=== PATIENT | male | born 1985 | race Caucasian/White ===

== ENCOUNTER 2018-04-29 15:48 | Emergency (ER) | payer SELFPAY ==
[~2018-04-29 15:48] MED LIST changes: -MAGN250T34 PO; -VITA-175 PO
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
[2018-04-29] MEDS ORDERED: NS(*) 0.9% 1000 ML BAG 1,000 ML IV ONE (16:12)
[2018-04-29] MEDS ORDERED: ONDANSETRON 4 MG/2 ML VIAL IVP ONE (16:15)
[2018-04-29 16:29] LABS: PLATELET COUNT, AUTOMATED 79 K/uL (150-450)
--- NOTE | 2018-04-29 17:12 | RADIOLOGY IMAGING REPORT ---
[place] [facility] [place] NAME: Jay Francis : 1985 MR: [id number] V: [id number] EXAM DATE: ORDERING PHYSICIAN: RAMBO SAENZ TECHNOLOGIST: Location: [facility] - [place] Patient: Jay Francis : 1985 Visit/Account:[id number] Date of Sevice: 04/29/2018 EXAMINATION: Head CT without intravenous contrast History: Trauma TECHNIQUE: Contiguous axial images were obtained from the skull base to the vertex without intraven ous contrast. One of the following dose optimization techniques was utilized in the performance of th is exam: Automated exposure control; adjustment of the mA and/or kV according to the patient's size; or use of an iterative reconstruction technique. Specific details can be referenced in the facility 's radiology CT exam operational policy. COMPARISON STUDIES: 05/06/2017 FINDINGS: Visualized mastoid air cells / paranasal sinuses: Mild mucosal thickening right maxillary sinus. Calvarium and scalp: Old fractures left maxillary sinus and zygomatic arch. No evidence of acute frac ture. Old fracture medial wall left orbit. White matter: negative Dural venous sinuses / arterial structures: negative Ventricles / sulci / fissures: negative Masses / hemorrhage / midline shift: negative Extra-axial spaces: negative IMPRESSION: No evidence of acute fracture or acute intracranial pathology. Report Dictated By: Dillon Menendez MD at 04/29/2018 5:03 PM Report E-Signed By: Dillon Menendez MD at 04/29/2018 5:06 PM WSN:[id number]
--- NOTE | 2018-04-29 17:17 | RADIOLOGY IMAGING REPORT ---
FACILITY: [facility] - [place] PATIENT NAME: Jay Francis : 1985 MR: [id number] V: [id number] EXAM DATE: ORDERING PHYSICIAN: RAMBO SAENZ TECHNOLOGIST: Location: [facility] Patient: Jay Francis : 1985 Visit/Account:[id number] Date of Sevice: 04/29/2018 EXAMINATION: Cervical spine CT History: Trauma COMPARISON STUDIES: 05/06/2017 TECHNIQUE: Axial images were obtained through the cervical spine without IV contrast administration. Coronal and sagittal reformatted images were obtained from the axial source data. One of the followi ng dose optimization techniques was utilized in the performance of this exam: Automated exposure cont rol; adjustment of the mA and/or kV according to the patient's size; or use of an iterative reconstr uction technique. Specific details can be referenced in the facility's radiology CT exam operational policy. FINDINGS: No evidence of acute fracture. Old fracture nondisplaced fracture deformity of the left occipital con dyle. Old fracture deformities spinous process fractures upper thoracic spine. Soft tissues are negat james. Vertebral bodies have normal height. No subluxation. Lung apices clear. IMPRESSION: Old fracture deformities of the left occipital condyle and spinous processes in the upper thoracic spine. No evidence of acute fracture or vertebral malalignment. Report Dictated By: Dillon Menendez MD at 04/29/2018 5:07 PM Report E-Signed By: Dillon Menendez MD at 04/29/2018 5:13 PM WSN:[id number]
[2018-04-29 17:30] VITALS: BP 132/96
--- NOTE | 2018-04-29 17:44 | RADIOLOGY IMAGING REPORT ---
FACILITY: [facility] PATIENT NAME: Jay Francis : 1985 MR: [id number] V: [id number] EXAM DATE: ORDERING PHYSICIAN: RAMBO SAENZ TECHNOLOGIST: Location: [facility] Patient: Jay Francis : 1985 Visit/Account:[id number] Date of Sevice: 04/29/2018 CHEST PA AND LAT INDICATION: fall, lightheadedness. COMPARISON: None available FINDINGS: Heart size within normal limits. There is no focal infiltrate or lobar consolidation. There is no pneumothorax or pleural effusion. IMPRESSION: 1. No acute cardiopulmonary process. Report Dictated By: Alcon Carrera at 04/29/2018 5:38 PM Report E-Signed By: Alcon Carrera at 04/29/2018 5:38 PM WSN:[id number]
--- NOTE | 2018-04-29 18:04 | EKG ---
FACILITY: [facility] PATIENT NAME: GIGI ZHOU : [id number] MR: [id number] V: [id number] EXAM DATE: ORDERING PHYSICIAN: RAMBO SAENZ TECHNOLOGIST: AMPARO Test Reason : DIZZY Blood Pressure : / mmHG Vent. Rate : 105 BPM Atrial Rate : 105 BPM P-R Int : 140 ms QRS Dur : 086 ms QT Int : 356 ms P-R-T Axes : 050 -04 -01 degrees QTc Int : 470 ms Sinus tachycardia Minimal voltage criteria for LVH, may be normal variant Borderline ECG When compared with ECG of 26-APR-2017 13:41, No significant change was found Confirmed by RAYMUNDO QUARLES ([id number]) on 05/01/2018 2:47:42 PM Referred By: NAHOMI Confirmed By:RAYMUNDO QUARLES
== END 2018-04-29 18:05 | disposition home or self-care (01) ==
LOC: ER 16:06
DX: S06.0X9A Concussion with loss of consciousness of unspecified duration, initial encounter (principal); F10.20 Alcohol dependence, uncomplicated; W19.XXXA Unspecified fall, initial encounter
CPT/HCPCS: 70450; 71046; 72125; 80320; 81001; 84484; 85025; 93005; 96361; 96374; 99285; J2405; J7030; 82040; 82247; 82310; 82374; 82435; 82565; 82947; 84075; 84132; 84155; 84295; 84450; 84460; 84520

== ENCOUNTER → 2018-04-29 | Outpatient (CLI) | payer SELFPAY ==
[~2018-04-29] MED LIST: MAGN250T34 PO; NIC10R INH; VITA-175 PO
[2018-04-30 13:06] VITALS: BMI 33.5
== END ==
LOC: AMB 15:32
PROVIDERS: ATTEND Nurse Practitioner
DX: R51 Headache (principal); S00.81XA Abrasion of other part of head, initial encounter; S00.511A Abrasion of lip, initial encounter; R41.3 Other amnesia; W19.XXXA Unspecified fall, initial encounter
CPT/HCPCS: A0425; A0427

== ENCOUNTER 2018-04-30 01:06 | Emergency (ER) | payer SELFPAY ==
--- NOTE | 2018-04-30 01:17 | ER Report ---
History and Physical Time Seen By MD: 01:16 Hx. of Stated Complaint: "WANTS TO DETOX" HPI/ROS CHIEF COMPLAINT: wants to detox from alcohol HISTORY OF PRESENT ILLNESS: This is a 32 year old male. He was here earlier in the day shift with a fall and evaluation with CT scan of the head and c-spine which were negative. He came back tonight because he feels like he needs to quit drinking. He has gone through detox in the past here in the hospital, but continued drinking. He has done other detox as well. He has a history of hallucinations when he quits drinking, but no history of seizures. He says that his radiator was talking to him earlier tonight, although he knows that that cannot be true. He drinks about 1/2 gallon of Vodka daily. He has not had anything else to eat or drink in about a week now. His last drink was about 3 hours prior to coming to the hospital. He has some abrasions from his fall earlier, but otherwise has no complaints other than the alcohol. He does not feel very shaky right now. He did express some vague suicidal thoughts, no specific plan. Allergies: Coded Allergies: No Known Drug Allergies (Unverified , 04/30/18) Home Meds Discontinued Reported Medications Nicotine (NICOTROL) 10 Mg/Inh Ctr, 10 MG INH PRN Y for NICOTINE REPLACEMENT 04/30/17 Reviewed Nurses Notes: Yes Hx Smoking: Yes Smoking Status: Current: Every Day Smoker, Heavy Tobacco Smoker Exposure to Second Hand Smoke?: Yes Hx Substance Use Disorder: No Hx Alcohol Use: Yes (1 PINT/DAY) Constitutional Vital Sign - Last 24 Hours 04/30/18 04/30/18 01:11 04:02 Temp 99.7 Pulse 118 133 Resp 18 20 B/P (MAP) 151/112 133/107 (116) Pulse Ox 93 91 O2 Delivery Room Air Room Air Physical Exam General Appearance: The patient is alert. No acute distress. Eyes: Pupils are equal, round. Reactive to light. No pallor or icterus, but has some scleral injection. Extraocular movements are intact. ENT: Mucous membranes are dry. Otherwise normal oral mucosa. Posterior oropharynx is normal. Normal tympanic membranes and canals. Neck: Supple and non tender. No lymphadenopathy. Respiratory: Lungs are clear to auscultation. Cardiovascular: Regular rate and rhythm. No murmurs, gallops or rubs. Normal capillary refill. Gastrointestinal: Abdomen is soft and non tender. Nondistended. Normal active bowel sounds. Neurological: Alert and oriented x3. Cranial nerves II through XII show no acute deficits on my exam. He has some mild unsteadiness on his feet, but otherwise has no focal weakness or numbness at this time. Skin: Warm and dry. He does have some abrasions on his face from his fall. Musculoskeletal: Mild discomfort in his neck from the fall earlier today, reviewed the CT scans which were negative. No other musculoskeletal pain at this time. DIFFERENTIAL DIAGNOSIS: After history and physical exam, differential diagnosis was considered for patient requesting detox, currently with mild symptoms of withdrawal, having hallucinations earlier today which were auditory, and history of prior hallucinations when he stops drinking. He will be voluntary for admission to [facility] for detox. Medical Decision Making Data Points Result Diagram: 04/30/18 0135 04/30/18 0135 Laboratory Hematology Test 04/30/18 01:23 04/30/18 01:35 Urine Color Kasia Urine Clarity Slightly-cloudy Urine pH 6.0 pH (4.8-9.5) Urine Specific [place] 1.023 Urine Protein 100 mg/dL (NEGATIVE) Urine Glucose (UA) 50 mg/dL (NEGATIVE) Urine Ketones Trace mg/dL (NEGATIVE) Urine Blood Large (NEGATIVE) Urine Nitrite Negative (NEGATIVE) Urine Bilirubin Moderate (NEGATIVE) Urine Urobilinogen 4.0 mg/dL (0.2-1.9) Urine Leukocyte Esterase Negative (NEGATIVE) Urine RBC 82 /HPF (0-2/HPF) Urine WBC 14 /HPF (0-5/HPF) Urine Squamous Epithelial Cells None /LPF (</=FEW) Urine Bacteria Negative /HPF (NONE-FEW) Urine Hyaline Casts Moderate /LPF (NONE-FEW) Urine Mucus Moderate /HPF (NONE-FEW) Urine Opiates Screen Negative Urine Barbiturates Screen Negative Ur Tricyclic Antidepressants Screen Negative Urine Phencyclidine Screen Negative Urine Amphetamines Screen Negative Urine Benzodiazepines Screen Negative Urine Cocaine Screen Negative Urine Cannabinoids Screen Negative Red Blood Count 5.28 M/uL (4.00-5.60) Mean Corpuscular Volume 95.0 fL (80.0-96.0) Mean Corpuscular Hemoglobin 32.9 pg (26.0-33.0) Mean Corpuscular Hemoglobin Concent 34.6 g/dL (32.0-36.0) Red Cell Distribution Width 13.6 % (11.5-14.5) Mean Platelet Volume 11.1 fL (7.2-11.1) Neutrophils (%) (Auto) 70.6 % (39.4-72.5) Lymphocytes (%) (Auto) 19.4 % (17.6-49.6) Monocytes (%) (Auto) 8.8 % (4.1-12.4) Eosinophils (%) (Auto) 0.3 % (0.4-6.7) Basophils (%) (Auto) 0.9 % (0.3-1.4) Nucleated RBC Relative Count (auto) 0.2 /100WBC Neutrophils # (Auto) 4.8 K/uL (2.0-7.4) Lymphocytes # (Auto) 1.3 K/uL (1.3-3.6) Monocytes # (Auto) 0.6 K/uL (0.3-1.0) Eosinophils # (Auto) 0.0 K/uL (0.0-0.5) Basophils # (Auto) 0.1 K/uL (0.0-0.1) Nucleated RBC Absolute Count (auto) 0.01 K/uL Sodium Level 142 mmol/L (137-145) Potassium Level 3.2 mmol/L (3.5-5.0) Chloride Level 99 mmol/L (98-107) Carbon Dioxide Level 26 mmol/L (22-30) Blood Urea Nitrogen 4 mg/dl (9-21) Creatinine 0.60 mg/dl (0.66-1.25) Glomerular Filtration Rate Calc > 60.0 Random Glucose 109 mg/dl (75-110) Calcium Level 8.6 mg/dl (8.4-10.2) Magnesium Level 1.9 mg/dl (1.7-2.2) Total Bilirubin 3.8 mg/dl (0.2-1.3) Aspartate Amino Transf (AST/SGOT) 1218 U/L (0-35) Alanine Aminotransferase (ALT/SGPT) 170 U/L (0-56) Alkaline Phosphatase 234 U/L (0-126) Total Protein 9.2 g/dl (6.3-8.2) Albumin 4.0 g/dl (3.5-5.0) Salicylates Level < 10 mg/L Salicylate Last Dose Date unk Acetaminophen Level < 10 ug/ml Serum Alcohol 358 mg/dl Chemistry Test 04/30/18 01:23 04/30/18 01:35 Urine Color Kasia Urine Clarity Slightly-cloudy Urine pH 6.0 pH (4.8-9.5) Urine Specific [place] 1.023 Urine Protein 100 mg/dL (NEGATIVE) Urine Glucose (UA) 50 mg/dL (NEGATIVE) Urine Ketones Trace mg/dL (NEGATIVE) Urine Blood Large (NEGATIVE) Urine Nitrite Negative (NEGATIVE) Urine Bilirubin Moderate (NEGATIVE) Urine Urobilinogen 4.0 mg/dL (0.2-1.9) Urine Leukocyte Esterase Negative (NEGATIVE) Urine RBC 82 /HPF (0-2/HPF) Urine WBC 14 /HPF (0-5/HPF) Urine Squamous Epithelial Cells None /LPF (</=FEW) Urine Bacteria Negative /HPF (NONE-FEW) Urine Hyaline Casts Moderate /LPF (NONE-FEW) Urine Mucus Moderate /HPF (NONE-FEW) Urine Opiates Screen Negative Urine Barbiturates Screen Negative Ur Tricyclic Antidepressants Screen Negative Urine Phencyclidine Screen Negative Urine Amphetamines Screen Negative Urine Benzodiazepines Screen Negative Urine Cocaine Screen Negative Urine Cannabinoids Screen Negative White Blood Count 6.8 k/uL (4.5-11.0) Red Blood Count 5.28 M/uL (4.00-5.60) Hemoglobin 17.4 g/dL (14.0-18.0) Hematocrit 50.2 % (42.0-52.0) Mean Corpuscular Volume 95.0 fL (80.0-96.0) Mean Corpuscular Hemoglobin 32.9 pg (26.0-33.0) Mean Corpuscular Hemoglobin Concent 34.6 g/dL (32.0-36.0) Red Cell Distribution Width 13.6 % (11.5-14.5) Platelet Count 75 K/uL (150-450) Mean Platelet Volume 11.1 fL (7.2-11.1) Neutrophils (%) (Auto) 70.6 % (39.4-72.5) Lymphocytes (%) (Auto) 19.4 % (17.6-49.6) Monocytes (%) (Auto) 8.8 % (4.1-12.4) Eosinophils (%) (Auto) 0.3 % (0.4-6.7) Basophils (%) (Auto) 0.9 % (0.3-1.4) Nucleated RBC Relative Count (auto) 0.2 /100WBC Neutrophils # (Auto) 4.8 K/uL (2.0-7.4) Lymphocytes # (Auto) 1.3 K/uL (1.3-3.6) Monocytes # (Auto) 0.6 K/uL (0.3-1.0) Eosinophils # (Auto) 0.0 K/uL (0.0-0.5) Basophils # (Auto) 0.1 K/uL (0.0-0.1) Nucleated RBC Absolute Count (auto) 0.01 K/uL Glomerular Filtration Rate Calc > 60.0 Calcium Level 8.6 mg/dl (8.4-10.2) Magnesium Level 1.9 mg/dl (1.7-2.2) Total Bilirubin 3.8 mg/dl (0.2-1.3) Aspartate Amino Transf (AST/SGOT) 1218 U/L (0-35) Alanine Aminotransferase (ALT/SGPT) 170 U/L (0-56) Alkaline Phosphatase 234 U/L (0-126) Total Protein 9.2 g/dl (6.3-8.2) Albumin 4.0 g/dl (3.5-5.0) Salicylates Level < 10 mg/L Salicylate Last Dose Date unk Acetaminophen Level < 10 ug/ml Serum Alcohol 358 mg/dl Toxicology Test 04/30/18 01:23 04/30/18 01:35 Urine Opiates Screen Negative Urine Barbiturates Screen Negative Ur Tricyclic Antidepressants Screen Negative Urine Phencyclidine Screen Negative Urine Amphetamines Screen Negative Urine Benzodiazepines Screen Negative Urine Cocaine Screen Negative Urine Cannabinoids Screen Negative Salicylates Level < 10 mg/L Salicylate Last Dose Date unk Acetaminophen Level < 10 ug/ml Serum Alcohol 358 mg/dl Urinalysis Test 04/30/18 01:23 Urine Color Kasia Urine Clarity Slightly-cloudy Urine pH 6.0 pH (4.8-9.5) Urine Specific [place] 1.023 Urine Protein 100 mg/dL (NEGATIVE) Urine Glucose (UA) 50 mg/dL (NEGATIVE) Urine Ketones Trace mg/dL (NEGATIVE) Urine Blood Large (NEGATIVE) Urine Nitrite Negative (NEGATIVE) Urine Bilirubin Moderate (NEGATIVE) Urine Urobilinogen 4.0 mg/dL (0.2-1.9) Urine Leukocyte Esterase Negative (NEGATIVE) Urine RBC 82 /HPF (0-2/HPF) Urine WBC 14 /HPF (0-5/HPF) Urine Squamous Epithelial Cells None /LPF (</=FEW) Urine Bacteria Negative /HPF (NONE-FEW) Urine Hyaline Casts Moderate /LPF (NONE-FEW) Urine Mucus Moderate /HPF (NONE-FEW) ED Course/Re-evaluation Clinical Indication for ER IV: Hydration, IV Access ED Course After initial evaluation, patient had blood work and urine sent to the lab. Shortly after this he started becoming very shaky. See was score showed a score of 45. I ordered 20 mg of Valium oral dose and Zofran 4 mg oral dose. Shortly after taking this medication he ended up throwing up., Still very shaky, we ordered an IV with a banana bag, 2 mg of IV Ativan, 4 mg of IV Zofran. This seemed to help him significantly. Labs have come back and show a normal white count but a low platelet count. His liver function tests are very elevated, he has mild decrease in his potassium. Otherwise electrolytes and kidney function are fairly unremarkable. His urinalysis was very abnormal with a lot of changes including ketones, glucose, blood, and on microscopic showed red cells and white cells with other debris but negative bacteria. His alcohol level was 358. Past alcohol levels have been around 400. At this visit earlier during the day shift his alcohol level was 360s. I ordered a urine culture as well as a dose of 1g Rocephin IV. He felt better after the initial ativan and we did give him some Sprite and crackers and he was able to keep these down. A little later started to become very shaky again and was given a second dose of Ativan 2mg IV. The Ativan has helped with the withdrawal symptoms, and he remains alert and oriented, no confusion. I called and discussed the patient presentation and the lab work with Dr. Bowers. Based on his rapid change with severe withdrawal symptoms, and his laboratory abnormalities, she felt that the patient would need further medical management and felt that right now behavioral health would not be the appropriate place for him at this time and asked if we could admit to medical and then take him to behavioral health once he is more stable. I called and spoke with Dr. Covarrubias, and we talked about the patient and he accepted him for admission to [facility]. Decision to Disposition Date: Apr 30, 2018 Decision to Disposition Time: 03:51 Depart Departure Latest Vital Signs Vital Signs Date Time Temp Pulse Resp B/P (MAP) Pulse Ox O2 Delivery O2 Flow Rate FiO2 04/30/18 04:02 99.7 133 20 133/107 (116) 91 Room Air Impression: Primary Impression: Alcohol withdrawal Condition: Condition Unchanged Disposition: Admitted from ER New Scripts No Active Prescriptions or Reported Meds Problem Qualifiers Primary Impression: Alcohol withdrawal Complication of substance-induced condition: with unspecified complication Qualified Codes: F10.239 - Alcohol dependence with withdrawal, unspecified FARHAN ROMERO MD Apr 30, 2018 01:17
[2018-04-30 01:40] LABS: PLATELET COUNT, AUTOMATED 75 K/uL (150-450)
[2018-04-30] MEDS ORDERED: DIAZEPAM 10 MG TAB ONE (02:04)
[2018-04-30] MEDS ORDERED: ONDANSETRON 4 MG TAB ONE (02:04)
[2018-04-30] MEDS ORDERED: THIAMINE HCL(*) 200 MG/2 ML IN 100 MG, FOLIC ACID(*) 50 MG/10 ML INJ 1 MG, MULTIVITAMIN... IV ONE (02:10)
[2018-04-30] MEDS ORDERED: ONDANSETRON 4 MG/2 ML VIAL IVP ONE (02:10)
[2018-04-30] MEDS ORDERED: LORazepam 2 MG/ML VIAL IVP ONE ×2 (02:10→03:20)
[2018-04-30] MEDS ORDERED: LORazepam 2 MG/ML VIAL ONE (02:17)
[2018-04-30] MEDS ORDERED: ONDANSETRON 4 MG/2 ML VIAL ONE (02:17)
[2018-04-30] MEDS ORDERED: cefTRIAXone 1 GM VIAL IVP ONE (02:25)
[2018-04-30 04:02] VITALS: BP 133/107
== END 2018-04-30 04:06 | disposition other institution (70) ==
LOC: ER 01:29
DX: F10.239 Alcohol dependence with withdrawal, unspecified (principal); Y90.8 Blood alcohol level of 240 mg/100 ml or more
CPT/HCPCS: 36415; 80305; 80320; 80329; 81001; 83735; 84443; 85025; 87088; 96365; 96366; 96375; 96376; 99284; J0696; J2060; J2405; J3411; J7030; S0119; 82040; 82247; 82310; 82374; 82435; 82565; 82947; 84075; 84132; 84155; 84295; 84450; 84460; 84520

== ENCOUNTER 2018-04-30 03:41 | Inpatient (IN) | payer SELFPAY ==
[2018-04-30] VITALS (10 sets, daily range): BP systolic 105–158; BP diastolic 78–99; Ht 182.9 cm; Wt 112.0 kg
[~2018-04-30] VITALS: Ht 182.9 cm; Wt 112.0 kg
[2018-04-30] MEDS ORDERED: LORazepam 2 MG/ML VIAL ONE (04:24)
[2018-04-30] MEDS: LORazepam 2 MG/ML VIAL IVP PRN ×5 (04:25→16:22)
[2018-04-30] MEDS ORDERED: KCL 2 MEQ/ML 20 MEQ/10 ML VIAL 20 MEQ in D5NS(*) 1000 ML BAG 1,000 ML IV PRN (04:35)
[2018-04-30] MEDS ORDERED: IBUPROFEN 200 MG TAB PO PRN (04:35)
[2018-04-30] MEDS ORDERED: KCL/DNS 20 MEQ/1000 ML PREMIX 1,000 ML IV ONE (05:01)
[2018-04-30] MEDS: ONDANSETRON 4 MG/2 ML VIAL IVP PRN ×2 (05:28→16:20)
--- NOTE | 2018-04-30 07:32 | History & Physical ---
History of Present Illness Chief Complaint Alcohol intoxication with withdrawal symptoms History of Present Illness Mr. Francis is a 32 year old male without any PMH except alcohol abuse 1/2 gallon Vodka/day. He was in the ER earlier in the day shift with a fall and evaluation with CT scan of the head and C-spine which were negative. He came back tonight because he felt like he needed to quit drinking. He has gone through detox in the past here in the hospital, but continued drinking. He has done other detox as well. He has a history of hallucinations when he quits drinking, but no history of seizures. He mentioned that his radiator was talking to him earlier tonight, although he knows that that could not be true. He drinks about 1/2 gallon of Vodka daily. He has not had anything else to eat or drink in about a week now. His last drink was about 3 hours prior to coming to the hospital. He has some abrasions from his fall earlier, but otherwise has no complaints other than the alcohol. He does not feel very shaky right now. He did express some vague suicidal thoughts, no specific plan. After initial evaluation, patient had blood work and urine sent to the lab. Shortly after this he started becoming very shaky. CIWA score showed a score of 45. I ordered 20 mg of Valium oral dose and Zofran 4 mg oral dose. Shortly after taking this medication he ended up throwing up. He was very shaky and he was ordered an IV with a banana bag, 2 mg of IV Ativan, 4 mg of IV Zofran in the ER. This seemed to help him significantly. Labs have come back and showed a normal white count but a low platelet count. His liver function tests were very elevated, he has mild decrease in his potassium. Otherwise electrolytes and kidney function are fairly unremarkable. His urinalysis was very abnormal with a lot of changes including ketones, glucose, blood, and on microscopic showed red cells and white cells with other debris but negative bacteria. His alcohol level was 358. Past alcohol levels have been around 400. At this visit earlier during the day shift his alcohol level was 360s. ordered a urine culture as well as a dose of 1g Rocephin IV. He felt better after the initial Ativan and we did give him some Sprite and crackers and he was able to keep these down. A little later started to become very shaky again and was given a second dose of Ativan 2mg IV. The Ativan has helped with the withdrawal symptoms , and he remains alert and oriented, no confusion. ER-MD called and discussed the patient presentation and the lab work with Dr. Bowers. Based on his rapid change with severe withdrawal symptoms, and his laboratory abnormalities, she felt that the patient would need further medical management and felt that right now behavioral health would not be the appropriate place for him at this time and asked if we could admit to medical and then take him to behavioral health once he is more stable. I spoke with Dr. Villar and we talked about the patient and Iaccepted the patient for admission to med/surg floor. History Home Meds Discontinued Reported Medications Nicotine (NICOTROL) 10 Mg/Inh Ctr, 10 MG INH PRN Y for NICOTINE REPLACEMENT 04/30/17 Allergies: Coded Allergies: No Known Drug Allergies (Unverified , 04/30/18) Patient History: Patient reports no known family medical history. Hx Smoking: Yes Smoking Status: Current: Every Day Smoker Exposure to Second Hand Smoke?: Yes Caffeine/Cups Per Day: N/A Hx Alcohol Use: Yes Alcohol Used: Liquor Hx Substance Use Disorder: No Social Drug Use: Currently Social Drugs: Marijuana Amount Of Social Drug/s Used: weekly or more Review of Systems Constitutional: No Fever, No Weight Loss, No Weight Gain, No Chills Neurological: Slurred Speech, No Confusion, No Weakness, No Dizziness Cardiovascular: No Chest Pain, No Palpitations Respiratory: No Shortness of Breath, No Cough Gastrointestinal: Nausea, No Vomiting, No Diarrhea, No Constipation, Abdominal Pain Genitourinary: No Dysuria, No Hematuria Musculoskeletal: No Pain, No Sprain, No Strain Psychiatric: No Depression, No Anxiety Exam Vital Signs Vital Signs Date Time Temp Pulse Resp B/P (MAP) Pulse Ox O2 Delivery O2 Flow Rate FiO2 04/30/18 07:44 120 04/30/18 07:42 24 147/99 (115) 94 Nasal Cannula 3.0 04/30/18 05:32 98.9 General Appearance: Alert, Awake, No Acute Distress, Afebrile Neuro: No Gross deficits Eyes: PERRLA ENT: Normal, Other (R-cheek excoriations) Neck: No Masses Cardiovascular: No Edema, Other (Tachycardia) Respiratory: No Respiratory Distress GI: Abd Soft and Non-Tender (mild tenderness with deep palpation) Musculoskeletal: No Weakness/Pain Extremities: Soft and Non Tender, Warm, Pulses Integumentary: Skin Intact without Lesion / Mass Psych: Alert & Oriented X3 (but feeling sick with hiccups) Medical Decision Making EKG / Imaging Monitor Interpretation: Sinus Tachycardia Pre-Admit Course ED Medications reviewed Medical Record Review: Yes Assessment and Plan Problems: (1) Alcohol intoxication delirium with moderate or severe use disorder Status: Acute Assessment & Plan: I will admit him for observation and stabilize his condition medically and then transfer him to the [facility] I will start CIWA protocol I will start IVF D5NS at 150ml/h with 20meq KCL I will start Folate 1mg po qd I will start Vit B12 1mg po qd I will start Thiamine 100mg po qd I will use SCD's for DVTP I will start Zofran for his nausea I will use Protonix 40mg po qd I will repeat his CMP and mag level later on today Central Venous Access Medical Necessity for Access: IV Access, Medication Administration Time Spent on Plan of Care: < 30 min Venous Thromboembolism VTE Risk Physician Assess for VTE Risk: Yes Patient's VTE Risk: Low VTE Diagnostic Test 2 Days Prior to Admit: No Antithrombotics Is Pt On Any Antithrombotics?: No Exam Sepsis Risk: Severe Sepsis Risk ANANT LICEA MD Apr 30, 2018 07:32
[2018-04-30] MEDS ORDERED: PANTOPRAZOLE SOD 40 MG TABEC PO SCH (09:00)
[2018-04-30] MEDS ORDERED: THIAMINE HCL 100 MG TAB PO SCH (09:00)
[2018-04-30] MEDS ORDERED: CYANOCOBALAMIN 1000 MCG TAB PO SCH (09:00)
[2018-04-30] MEDS ORDERED: FOLIC ACID 1 MG TAB PO SCH (09:00)
[2018-04-30] MEDS ORDERED: NS 0.9% IVPB PRN (09:30)
[2018-04-30] MEDS ORDERED: THIAMINE HCL(*) 200 MG/2 ML IN 100 MG, FOLIC ACID(*) 50 MG/10 ML INJ 1 MG, MULTIVITAMIN... IV SCH (09:30)
[2018-04-30] MEDS ORDERED: CHLORPROMAZINE IVPB PRN (09:30)
[2018-04-30] MEDS: PANTOPRAZOLE SOD 40 MG IV VIAL IVP SCH (09:57)
[2018-04-30] MEDS ORDERED: THIAMINE HCL(*) 200 MG/2 ML IN 100 MG, FOLIC ACID(*) 50 MG/10 ML INJ 1 MG, MULTIVITAMIN... IV ONE (10:30)
[2018-04-30] MEDS ORDERED: 1: MULTIVITAMINS(*) 10 ML VIAL 10 ML, FOLIC ACID(*) 50 MG/10 ML INJ 1 MG, THIAMINE HCL( IV SCH ×2 (10:30)
[2018-04-30] MEDS ORDERED: NS(*) 0.9% 1000 ML BAG 1,000 ML IV PRN (18:30)
[2018-04-30] MEDS: KCL/DNS 20 MEQ/1000 ML PREMIX 1,000 ML IV PRN (20:59)
[2018-05-01] VITALS (7 sets, daily range): BP systolic 120–133; BP diastolic 83–105
[2018-05-01] MEDS: ONDANSETRON 4 MG/2 ML VIAL IVP PRN (00:08)
[2018-05-01] MEDS: KCL/DNS 20 MEQ/1000 ML PREMIX 1,000 ML IV PRN (03:58)
[2018-05-01] MEDS: LORazepam 2 MG/ML VIAL IVP PRN ×3 (08:48→13:09)
[2018-05-01] MEDS: PANTOPRAZOLE SOD 40 MG IV VIAL IVP SCH (08:49)
[2018-05-01] MEDS ORDERED: MAGNESIUM SUL* 2 GM/50 ML IVPB 50 ML IVPB ONE (10:30)
[2018-05-01] MEDS ORDERED: THIAMINE HCL(*) 200 MG/2 ML IN 100 MG, FOLIC ACID(*) 50 MG/10 ML INJ 1 MG, MULTIVITAMIN... IV ONE (10:30)
[2018-05-01] MEDS: FOLIC ACID 1 MG TAB PO SCH (10:31)
[2018-05-01] MEDS: THIAMINE HCL 100 MG TAB PO SCH (10:31)
[2018-05-01] MEDS: KCL (*) 20 MEQ/100 ML PREMIX 100 ML IV SCH ×2 (12:30→13:09)
--- NOTE | 2018-05-01 12:30 | Hospitalist Progress Note ---
Subjective Progress Notes Subjective This patient was admitted for alcohol detoxification. He had no acute events overnight. Patient Complains of: Cardiovascular: No: Chest Pain Respiratory: No: Shortness of Breath Physical Exam Vital Signs Date Time Temp Pulse Resp B/P (MAP) Pulse Ox O2 Delivery O2 Flow Rate FiO2 05/01/18 10:40 95 05/01/18 10:40 98.9 22 123/105 (111) 90 Room Air 05/01/18 08:10 3.0 Intake and Output 05/02/18 07:00 Intake Total 1240 ml Balance 1240 ml Intake Oral 1240 ml # Voids 1 Cardiovascular: Regular Rate and Rhythm Respiratory: Clear to Auscultation Result Diagram: 05/01/18 0716 Monitor Interpretation: Sinus Tachycardia Assessment and Plan Problems: (1) Alcohol intoxication delirium with moderate or severe use disorder Status: Acute Assessment & Plan: He has been placed on CIWA protocol. He is also receiving thiamine and folic acid. He will transfer to [facility] once his condition improves. (2) Hypokalemia Assessment & Plan: He is scheduled to receive a potassium rider today. Central Venous Access Medical Necessity for Access: IV Access, Medication Administration Exam Sepsis Risk: No Definite Risk RAYMUNDO QUARLES DO May 01, 2018 12:30
[2018-05-01] MEDS ORDERED: NS(*) 0.9% 250 ML BAG 250 ML ONE (17:15)
[2018-05-01] MEDS: LORazepam 1 MG TAB PO PRN (18:00)
[2018-05-01] MEDS ORDERED: NS(*) 0.9% 1000 ML BAG 1,000 ML IV PRN (18:30)
[2018-05-02] VITALS (7 sets, daily range): BP systolic 110–146; BP diastolic 71–97
[2018-05-02] MEDS ORDERED: KETOROLAC 30 MG/ML VIAL IVP ONE (00:30)
[2018-05-02] MEDS: LORazepam 1 MG TAB PO PRN ×2 (03:24→04:22)
[2018-05-02] MEDS ORDERED: IBUPROFEN 200 MG TAB PO PRN (06:41)
[2018-05-02] MEDS: THIAMINE HCL 100 MG TAB PO SCH (08:15)
[2018-05-02] MEDS: FOLIC ACID 1 MG TAB PO SCH (08:15)
[2018-05-02 09:12] LABS: PLATELET COUNT, AUTOMATED 54 K/uL (150-450)
[2018-05-02] MEDS ORDERED: POTASSIUM CHL 10 MEQ TABCR PO ONE ×2 (10:05→17:00)
[2018-05-02] MEDS ORDERED: DIAZEPAM 10 MG TAB PO PRN ×2 (11:15)
--- NOTE | 2018-05-02 11:26 | Hospitalist Progress Note ---
Subjective Progress Notes Subjective He is sore diffusely related to a prior fall. He did get Ativan at 0422 this morning for elevated CIWA. Physical Exam Vital Signs Date Time Temp Pulse Resp B/P (MAP) Pulse Ox O2 Delivery O2 Flow Rate FiO2 05/02/18 09:05 98.7 103 24 123/76 (92) 93 Room Air 05/01/18 08:10 3.0 Intake and Output 05/03/18 06:59 Intake Total 360 ml Balance 360 ml Intake Oral 360 ml # Voids 1 General Appearance: Alert, Awake, No Acute Distress Neuro: Other (no obvious tremor. knows where he is and why he is here) GI: Soft and Non-Tender Result Diagram: 05/02/1890205/02/18902 Monitor Interpretation: Sinus Tachycardia Assessment and Plan Problems: (1) Alcohol intoxication delirium with moderate or severe use disorder Status: Acute Assessment & Plan: He presented wanting to detox from alcohol. He drinks about 1/2 gallon of vodka daily. Currently, he is having a fairly mild withdrawal but requiring medication treatment. He has been placed on CIWA protocol with Valium po to cover. He is also receiving thiamine and folic acid. Will see if a counselor from [facility] can see the patient today. (2) Hepatitis, alcoholic, acute Status: Acute Assessment & Plan: His LFT's were very elevated upon admission. APAP levels have been wnl and he denies any use of it. AST/ALT improving. However, total bilirubin is increasing. Alk phos is trending down. His abdominal exam is benign. Will follow. (3) Hypokalemia Assessment & Plan: He is scheduled to receive a potassium orally today. Central Venous Access Medical Necessity for Access: IV Access, Medication Administration Exam Sepsis Risk: No Definite Risk SALAS HIGH MD May 02, 2018 11:26
[2018-05-02] MEDS: ONDANSETRON 4 MG/2 ML VIAL IVP PRN (13:40)
[2018-05-03 03:55] VITALS: BP 130/77
[2018-05-03 06:20] LABS: PLATELET COUNT, AUTOMATED 65 K/uL (150-450)
[2018-05-03 07:58] VITALS: BP 137/90
[2018-05-03] MEDS: THIAMINE HCL 100 MG TAB PO SCH (09:16)
[2018-05-03] MEDS: FOLIC ACID 1 MG TAB PO SCH (09:16)
[2018-05-03] MEDS ORDERED: VITA-175 PO (10:26)
--- NOTE | 2018-05-03 10:42 | Hospitalist Depart ---
Discharge Summary Reason for Hosp/Final Diag: (1) Alcohol intoxication delirium with moderate or severe use disorder Status: Acute Hospital Course & Plan: He presented wanting to detoxify from alcohol. He was drinking about 1/2 gallon of vodka daily. He was having a fairly mild withdrawal , but did require medication treatment with benzodiazepines. He was placed on CIWA protocol. He was also receiving thiamine and folic acid. The substance abuse counselor from [facility] did see the patient as well. He did not wish to pursue inpatient treatment at this time, but was amenable to follow up with [facility] and also. We did discuss the fact he will need to maintain complete abstinence, otherwise he risks further potential medical complications up to and including liver failure and even . He voiced understanding of this. (2) Hepatitis, alcoholic, acute Status: Acute Hospital Course & Plan: His LFTs were elevated upon admission. Acetaminophen levels were been negative and he denies any use of it. His AST/ALT have been improving. However, total bilirubin did increase modestly. His abdominal exam is benign. This is all consistent with acute alcoholic hepatitis. He will need to maintain complete abstinence. He will also follow up with the [facility] for re-check of his lab work. (3) Hypokalemia Hospital Course & Plan: He received potassium supplements and level returned to normal. His magnesium level is just slightly low and he will be on oral supplement. He will need re-check labs in 1-2 weeks. Departure Weight (Pounds): 247 Result Diagram: 05/03/1852905/03/18 0530 Item Value Date Time Sodium Level 139 mmol/L 04/30/18 1255 Potassium Level 3.1 mmol/L L 04/30/18 1255 Chloride Level 102 mmol/L 04/30/18 1255 Carbon Dioxide Level 25 mmol/L 04/30/18 1255 Blood Urea Nitrogen 5 mg/dl L 04/30/18 1255 Creatinine 0.50 mg/dl L 04/30/18 1255 Glomerular Filtration Rate Calc > 60.0 04/30/18 1255 Random Glucose 129 mg/dl H 04/30/18 1255 Calcium Level 7.5 mg/dl L 04/30/18 1255 Total Bilirubin 4.0 mg/dl H 04/30/18 1255 Aspartate Amino Transf (AST/SGOT) 893 U/L H 04/30/18 1255 Alanine Aminotransferase (ALT/SGPT) 142 U/L H 04/30/18 1255 Alkaline Phosphatase 170 U/L H 04/30/18 1255 Total Protein 6.6 g/dl 04/30/18 1255 Albumin 2.9 g/dl L 04/30/18 1255 Magnesium Level 1.3 mg/dl L 05/01/18 0725 Magnesium Level 1.7 mg/dl 05/02/18 0903 Magnesium Level 1.6 mg/dl L 05/03/18 0530 Albumin 2.8 g/dl L 05/03/18 0530 Total Protein 6.3 g/dl 05/03/18 0530 Alkaline Phosphatase 147 U/L H 05/03/18 0530 Alanine Aminotransferase (ALT/SGPT) 77 U/L H 05/03/18 0530 Aspartate Amino Transf (AST/SGOT) 262 U/L H 05/03/18 0530 Total Bilirubin 7.9 mg/dl H 05/03/18 0530 Calcium Level 8.4 mg/dl 05/03/18 0530 Serum Alcohol 21 mg/dl 04/30/18 1255 Acetaminophen Level < 10 ug/ml 05/02/18 0903 White Blood Count 4.3 k/uL L 05/02/18 0903 Hemoglobin 14.0 g/dL 05/02/18 0903 Hematocrit 40.8 % L 05/02/18 0903 Platelet Count 54 K/uL L 05/02/18 0903 Urine Color Kasia 04/30/182217 Urine Clarity Slightly-cloudy 04/30/182217 Urine pH 6.0 pH 04/30/182217 Urine Specific [place] 1.031 04/30/182217 Urine Protein 100 mg/dL 04/30/182217 Urine Glucose (UA) Negative mg/dL 04/30/182217 Urine Ketones Trace mg/dL 04/30/182217 Urine Blood Large 04/30/182217 Urine Nitrite Negative 04/30/182217 Urine Bilirubin Moderate 04/30/182217 Urine Urobilinogen 4.0 mg/dL H 04/30/182217 Urine Leukocyte Esterase Negative 04/30/182217 Urine RBC 37 /HPF 04/30/182217 Urine WBC 1 /HPF 6/16/18 2218 Urine Squamous Epithelial Cells None /LPF 04/30/182217 Urine Bacteria Negative /HPF 04/30/18 2218 Urine Mucus Few /HPF 04/30/18 2218 Imaging PATIENT NAME: Jay Francis : 1985 MR: [id number] V: [id number] EXAM DATE: [id number] ORDERING PHYSICIAN: RAMBO SAENZ TECHNOLOGIST: Location: [facility] Patient: Jay Francis : 1985 Visit/Account:[id number] Date of Sevice: 04/29/2018 CHEST PA AND LAT INDICATION: fall, lightheadedness. COMPARISON: None available FINDINGS: Heart size within normal limits. There is no focal infiltrate or lobar consolidation. There is no pneumothorax or pleural effusion. IMPRESSION: 1. No acute cardiopulmonary process. Report Dictated By: Alcon Carrera at 04/29/2018 5:38 PM Report E-Signed By: Alcon Carrera at 04/29/2018 5:38 PM WSN:[email or web address] PATIENT NAME: Jay Francis : 1985 MR: [id number] V: [id number] EXAM DATE: ORDERING PHYSICIAN: RAMBO SAENZ TECHNOLOGIST: Location: [facility] Patient: Jay Francis : 1985 Visit/Account:[id number] Date of Sevice: 04/29/2018 EXAMINATION: Head CT without intravenous contrast History: Trauma TECHNIQUE: Contiguous axial images were obtained from the skull base to the vertex without intravenous contrast. One of the following dose optimization techniques was utilized in the performance of this exam: Automated exposure control; adjustment of the mA and/or kV according to the patient's size; or use of an iterative reconstruction technique. Specific details can be referenced in the facility's radiology CT exam operational policy. COMPARISON STUDIES: 05/06/2017 FINDINGS: Visualized mastoid air cells / paranasal sinuses: Mild mucosal thickening right maxillary sinus. Calvarium and scalp: Old fractures left maxillary sinus and zygomatic arch. No evidence of acute fracture. Old fracture medial wall left orbit. White matter: negative Dural venous sinuses / arterial structures: negative Ventricles / sulci / fissures: negative Masses / hemorrhage / midline shift: negative Extra-axial spaces: negative IMPRESSION: No evidence of acute fracture or acute intracranial pathology. Report Dictated By: Dillon Menendez MD at 04/29/2018 5:03 PM Report E-Signed By: Dillon Menendez MD at 04/29/2018 5:06 PM WSN:[id number] PATIENT NAME: Jay Francis : 1985 MR: [id number] V: [id number] EXAM DATE: ORDERING PHYSICIAN: RAMBO SAENZ TECHNOLOGIST: Location: [facility] Patient: Jay Francis : 1985 Visit/Account:[id number] Date of Sevice: 04/29/2018 EXAMINATION: Cervical spine CT History: Trauma COMPARISON STUDIES: 05/06/2017 TECHNIQUE: Axial images were obtained through the cervical spine without IV contrast administration. Coronal and sagittal reformatted images were obtained from the axial source data. One of the following dose optimization techniques was utilized in the performance of this exam: Automated exposure control; adjustment of the mA and/or kV according to the patient's size; or use of an iterative reconstruction technique. Specific details can be referenced in the facility's radiology CT exam operational policy. FINDINGS: No evidence of acute fracture. Old fracture nondisplaced fracture deformity of the left occipital condyle. Old fracture deformities spinous process fractures upper thoracic spine. Soft tissues are negative. Vertebral bodies have normal height. No subluxation. Lung apices clear. IMPRESSION: Old fracture deformities of the left occipital condyle and spinous processes in the upper thoracic spine. No evidence of acute fracture or vertebral malalignment. Report Dictated By: Dillon Menendez MD at 04/29/2018 5:07 PM Report E-Signed By: Dillon Menendez MD at 04/29/2018 5:13 PM WSN:[id number] Condition: Improved Discharge: Home, Self Care Follow-Up Labs: Other (CBC, CMP, magnesium level in 1-2 weeks) Time Spent: > 30 min Discharge Instructions Home Meds Active Scripts Magnesium Oxide (MAGNESIUM) 250 Mg Tablet, 250 MG PO BID, #30 TAB Prov:PATRICK SARAH MD 05/03/18 Vitamin B Complex (B COMPLEX) 1 Each Tablet, 1 EACH PO DAILY, #30 TAB Prov:PATRICK SARAH MD 05/03/18 Discontinued Reported Medications Nicotine (NICOTROL) 10 Mg/Inh Ctr, 10 MG INH PRN Y for NICOTINE REPLACEMENT 04/30/17 Diet: Regular (No alcohol) Activity: As Tolerated, No Exertion Special Instructions: Follow up at [facility] in next 1-2 weeks or sooner if any problems. NO ALCOHOL. Follow up with [facility] in next 3 days. Check in with nearest Alcoholics Anonymous as soon as possible. Copies to: [facility] Venous Thromboembolism Antithrombotics Is Pt On Any Antithrombotics?: No PATRICK SARAH MD May 03, 2018 10:42
[2018-05-03] MEDS ORDERED: MAGN250T34 PO (10:43)
== END 2018-05-03 12:52 | disposition home or self-care (01) | DRG 897 ==
LOC: MED 03:41
PROVIDERS: ADMIT Specialist; ATTEND Specialist
DX: F10.221 Alcohol dependence with intoxication delirium (principal); R45.851 Suicidal ideations; K70.10 Alcoholic hepatitis without ascites; E87.6 Hypokalemia; F10.230 Alcohol dependence with withdrawal, uncomplicated; Y90.8 Blood alcohol level of 240 mg/100 ml or more
CPT/HCPCS: 36415; 80320; 80329; 81001; 82040; 82247; 82310; 82374; 82435; 82565; 82947; 83735; 84075; 84132; 84155; 84295; 84450; 84460; 84520; 85025; C9113; J1885; J2060; J2405; J3230; J3411; J3475; J3480; J7050

== ENCOUNTER 2018-05-07 10:34 | Emergency (ER) | payer SELFPAY ==
[2018-04-30 13:06] VITALS: Wt 112.0 kg
[~2018-05-07 10:34] MED LIST changes: +MAGN250T34 PO; +VITA-175 PO
[2018-05-07 10:41] VITALS: BP 142/115
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
[2018-05-07] MEDS: 1: MULTIVITAMINS(*) 10 ML VIAL 10 ML, FOLIC ACID(*) 50 MG/10 ML INJ 1 MG, THIAMINE HCL( IV SCH ×2 (11:10→11:49)
[2018-05-07 12:04] LABS: PLATELET COUNT, AUTOMATED 222 K/uL (150-450)
== END 2018-05-07 13:24 ==
LOC: ER 11:09
DX: F10.239 Alcohol dependence with withdrawal, unspecified (principal); K70.10 Alcoholic hepatitis without ascites; Y90.8 Blood alcohol level of 240 mg/100 ml or more; F17.210 Nicotine dependence, cigarettes, uncomplicated
CPT/HCPCS: 80305; 80320; 80329; 81001; 83735; 84443; 85025; 87088; 96365; 99284; J3411; J3475; J7030; 82040; 82247; 82310; 82374; 82435; 82565; 82947; 84075; 84132; 84155; 84295; 84450; 84460; 84520

== ENCOUNTER 2018-05-07 13:39 | Inpatient (IN) | payer SELFPAY ==
[2018-04-30 13:06] VITALS: Ht 185.4 cm; Wt 113.4 kg
[~2018-05-07] VITALS: Ht 185.4 cm; Wt 113.4 kg
[2018-05-07 14:00] VITALS: BP 154/92
[2018-05-07] MEDS: LORazepam 1 MG TAB PO PRN ×5 (14:32→22:33)
[2018-05-07 18:20] VITALS: BP 142/68
[2018-05-07] MEDS ORDERED: clonazePAM 0.5 MG ODT TABDP PO ONE ×2 (18:50→22:20)
[2018-05-07 21:30] VITALS: BP 140/68
[2018-05-07 22:23] VITALS: BP 150/76
[2018-05-07 22:49] LABS: PLATELET COUNT, AUTOMATED 165 K/uL (150-450)
[2018-05-08] VITALS (9 sets, daily range): BP systolic 120–157; BP diastolic 70–101
[2018-05-08] MEDS: LORazepam 1 MG TAB PO PRN ×13 (00:49→21:38)
[2018-05-08] MEDS ORDERED: LOPERAMIDE HCL 2 MG CAP PO ONE (05:45)
[2018-05-08] MEDS ORDERED: LOPERAMIDE HCL 2 MG CAP PO PRN (05:45)
[2018-05-08 08:57] LABS: PLATELET COUNT, AUTOMATED 161 K/uL (150-450)
[2018-05-08] MEDS: MULTIVITAMINS PO SCH (13:45)
[2018-05-08] MEDS: FOLIC ACID 1 MG TAB PO SCH (13:45)
[2018-05-08] MEDS: THIAMINE HCL 100 MG TAB PO SCH (13:45)
--- NOTE | 2018-05-08 19:28 | RADIOLOGY IMAGING REPORT ---
FACILITY: [facility] PATIENT NAME: Jay Francis : 1985 MR: [id number] V: [id number] EXAM DATE: ORDERING PHYSICIAN: ENRIQUE SETHI TECHNOLOGIST: Location: [facility] Patient: Jay Francis : 1985 Visit/Account:[id number] Date of Sevice: 05/08/2018 INDICATION: PAIN. DATE: 05/08/2018 7:19 PM. TECHNIQUE: CLAVICLE RIGHT COMPARISON: None FINDINGS: No evidence of fracture or dislocation at the shoulder. No widening of the AC joint or aurelia coclavicular interval. IMPRESSION: No evidence of fracture or dislocation. Report Dictated By: Juan Estes MD at 05/08/2018 7:19 PM Report E-Signed By: Juan Estes MD at 05/08/2018 7:23 PM WSN:[id number]
[2018-05-09] VITALS (10 sets, daily range): BP systolic 114–155; BP diastolic 70–104
[2018-05-09] MEDS: LORazepam 1 MG TAB PO PRN ×10 (00:45→21:49)
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
[2018-05-09 06:34] LABS: PLATELET COUNT, AUTOMATED 151 K/uL (150-450)
[2018-05-09] MEDS: MULTIVITAMINS PO SCH (08:02)
[2018-05-09] MEDS: THIAMINE HCL 100 MG TAB PO SCH (08:02)
[2018-05-09] MEDS: FOLIC ACID 1 MG TAB PO SCH (08:02)
--- NOTE | 2018-05-09 13:29 | BHS Progress Note ---
[facility] - Subjective Progress Notes Subjective Patient continues in active alcohol withdrawal, with gradually increasing bilirubin. Ammonia level mildly elevated. Amylase and lipase normal, with mild abdominal discomfort. Appetite suppressed but patient is able to eat some soft food, with no vomiting. Spoke with hospitalist about patient's case, ultrasound to rule out gallstones was recommended. Unfortunately, this could not be done without patient being NPO. Patient in active withdrawal, and fluids are necessary, will repeat labs in AM, and continue to monitor. Patient in need of rehab, and will strongly encourage entrance. Suicidal Ideation: None Homicidal Ideation: None [facility] - Objective Physical Exam Vital Signs Vital Signs Date Time Temp Pulse Resp B/P (MAP) Pulse Ox O2 Delivery O2 Flow Rate FiO2 05/09/18 09:39 99.8 101 147/99 (115) 95 Room Air 05/09/18 07:46 18 05/08/18 05:15 2.0 Hematology Test 05/09/18 06:00 05/09/18 07:39 Red Blood Count 4.22 M/uL (4.00-5.60) Mean Corpuscular Volume 96.3 fL (80.0-96.0) Mean Corpuscular Hemoglobin 33.9 pg (26.0-33.0) Mean Corpuscular Hemoglobin Concent 35.2 g/dL (32.0-36.0) Red Cell Distribution Width 14.6 % (11.5-14.5) Mean Platelet Volume 11.9 fL (7.2-11.1) Neutrophils (%) (Auto) 64.3 % (39.4-72.5) Lymphocytes (%) (Auto) 19.8 % (17.6-49.6) Monocytes (%) (Auto) 9.5 % (4.1-12.4) Eosinophils (%) (Auto) 3.8 % (0.4-6.7) Basophils (%) (Auto) 2.6 % (0.3-1.4) Nucleated RBC Relative Count (auto) 0.1 /100WBC Neutrophils # (Auto) 3.9 K/uL (2.0-7.4) Lymphocytes # (Auto) 1.2 K/uL (1.3-3.6) Monocytes # (Auto) 0.6 K/uL (0.3-1.0) Eosinophils # (Auto) 0.2 K/uL (0.0-0.5) Basophils # (Auto) 0.2 K/uL (0.0-0.1) Nucleated RBC Absolute Count (auto) 0.00 K/uL Peripheral Blood Smear Yes Y/N Sodium Level 137 mmol/L (137-145) Potassium Level 3.9 mmol/L (3.5-5.0) Chloride Level 104 mmol/L (98-107) Carbon Dioxide Level 23 mmol/L (22-30) Blood Urea Nitrogen 3 mg/dl (9-21) Creatinine 0.40 mg/dl (0.66-1.25) Glomerular Filtration Rate Calc > 60.0 Random Glucose 95 mg/dl (75-110) Calcium Level 8.6 mg/dl (8.4-10.2) Total Bilirubin 6.8 mg/dl (0.2-1.3) Aspartate Amino Transf (AST/SGOT) 232 U/L (0-35) Alanine Aminotransferase (ALT/SGPT) 58 U/L (0-56) Alkaline Phosphatase 175 U/L (0-126) Total Protein 6.7 g/dl (6.3-8.2) Albumin 2.9 g/dl (3.5-5.0) Amylase Level 40 U/L (0-110) Lipase 90 U/L (23-300) Ammonia 46 UMOL/L (9-33) Chemistry Test 05/09/18 06:00 05/09/18 07:39 White Blood Count 6.1 k/uL (4.5-11.0) Red Blood Count 4.22 M/uL (4.00-5.60) Hemoglobin 14.3 g/dL (14.0-18.0) Hematocrit 40.7 % (42.0-52.0) Mean Corpuscular Volume 96.3 fL (80.0-96.0) Mean Corpuscular Hemoglobin 33.9 pg (26.0-33.0) Mean Corpuscular Hemoglobin Concent 35.2 g/dL (32.0-36.0) Red Cell Distribution Width 14.6 % (11.5-14.5) Platelet Count 151 K/uL (150-450) Mean Platelet Volume 11.9 fL (7.2-11.1) Neutrophils (%) (Auto) 64.3 % (39.4-72.5) Lymphocytes (%) (Auto) 19.8 % (17.6-49.6) Monocytes (%) (Auto) 9.5 % (4.1-12.4) Eosinophils (%) (Auto) 3.8 % (0.4-6.7) Basophils (%) (Auto) 2.6 % (0.3-1.4) Nucleated RBC Relative Count (auto) 0.1 /100WBC Neutrophils # (Auto) 3.9 K/uL (2.0-7.4) Lymphocytes # (Auto) 1.2 K/uL (1.3-3.6) Monocytes # (Auto) 0.6 K/uL (0.3-1.0) Eosinophils # (Auto) 0.2 K/uL (0.0-0.5) Basophils # (Auto) 0.2 K/uL (0.0-0.1) Nucleated RBC Absolute Count (auto) 0.00 K/uL Peripheral Blood Smear Yes Y/N Glomerular Filtration Rate Calc > 60.0 Calcium Level 8.6 mg/dl (8.4-10.2) Total Bilirubin 6.8 mg/dl (0.2-1.3) Aspartate Amino Transf (AST/SGOT) 232 U/L (0-35) Alanine Aminotransferase (ALT/SGPT) 58 U/L (0-56) Alkaline Phosphatase 175 U/L (0-126) Total Protein 6.7 g/dl (6.3-8.2) Albumin 2.9 g/dl (3.5-5.0) Amylase Level 40 U/L (0-110) Lipase 90 U/L (23-300) Ammonia 46 UMOL/L (9-33) Muscle Strength and Tone: WNL Gait and Station: Steady [facility] Medications Reviewed: Side Effects, Benefits of Medication, Risks Allergies Reviewed: Yes Mental Status Exam General Appearance: Casual, Well Groomed, Good Eye Contact, Cooperative, Polite , Good Interaction, No Unkept, No Tearful, Psychomotor Retardation, No Bizarre Mannerisms, No Tics Speech: Clear, Spontaneous, Normal Rhythm, Normal Volume, Normal Tone, Delayed Mood: Dysthmic/Depressed (frustrated) Affect: Calm, Neutral Thought Process: Organized, Logical, Goal Directed, No Loose Associations, No Flight of Ideas Thought Content: No Suicidal Ideation, No Homicidal Ideation, No Delusions, No Auditory Halllucinations, Visual Hallucinations (related to withdrawal), No Thought Broadcasting, No Ideas of Reference, No Obsessions, No Compulsions Sensorium: Clear Cognition: Alert & Oriented-Person, Alert & Oriented-Place, Alert & Oriented- Time, Fevrk-Ikbbtfbl-Lxtbxsxlm Memory: Immediate, Recent, Remote Intelligence: Average Insight Judgment: Fair (patient indicates understanding the necessity to abstain ) Result Diagram: 05/09/1859905/09/18599 [facility] Assessment and Plan [id number] Encounter Date: May 09, 2018 [id number] Encounter Time: 11:00 [facility] Plan: Necessary Precautions, Individual/Group Therapy, Admin/Titrate Meds, Educate Patient Tobacco Medications: Started Multpiple Antipsychotics Used: No Problems: (1) Alcohol withdrawal Status: Acute (2) Alcohol use disorder, severe, in controlled environment Optional Permanent Comment: hx of traumatic brain injury Last Edited By: Leeanne Beck on May 09, 2018 13:23 Status: Chronic Condition 1. continue treatment. 2. labs in AM. Problem Qualifiers (1) Alcohol withdrawal: Complication of substance-induced condition: with perceptual disturbance Qualified Codes: F10.232 - Alcohol dependence with withdrawal with perceptual disturbance LEEANNE BECK MD May 09, 2018 13:28
[2018-05-10 02:30] VITALS: BP 140/87
[2018-05-10] MEDS: LORazepam 1 MG TAB PO PRN ×5 (02:39→19:21)
[2018-05-10 05:10] VITALS: BP 137/91
[2018-05-10] MEDS: THIAMINE HCL 100 MG TAB PO SCH (08:19)
[2018-05-10] MEDS: MULTIVITAMINS PO SCH (08:19)
[2018-05-10] MEDS: FOLIC ACID 1 MG TAB PO SCH (08:19)
[2018-05-10 09:22] LABS: PLATELET COUNT, AUTOMATED 180 K/uL (150-450)
--- NOTE | 2018-05-10 09:24 | BHS Progress Note ---
[facility] - Subjective Progress Notes Subjective Patient considering residential treatment today, and certainly meets criteria for it. Labs this AM pending on this patient with severely compromised hepatic function at an early age. Ongoing treatment for withdrawal continues. Mood frustrated, no other concerns. today. Will continue treatment, and review lab work. Will evaluate appropriate stay on behavioral health verses transfer to Medical floor. Suicidal Ideation: None Homicidal Ideation: None [facility] - Objective Physical Exam Vital Signs Hematology Test 05/09/18 06:00 05/10/18 09:08 Peripheral Blood Smear Yes Y/N Amylase Level 40 U/L (0-110) Lipase 90 U/L (23-300) Chemistry Test 05/09/18 06:00 05/10/18 09:08 Peripheral Blood Smear Yes Y/N Amylase Level 40 U/L (0-110) Lipase 90 U/L (23-300) Vital Signs Date Time Temp Pulse Resp B/P (MAP) Pulse Ox O2 Delivery O2 Flow Rate FiO2 05/10/18 05:10 98.4 98 16 137/91 (106) 93 Room Air 05/08/18 05:15 2.0 Muscle Strength and Tone: WNL Gait and Station: Steady [facility] Medications Reviewed: Side Effects, Benefits of Medication, Risks Allergies Reviewed: Yes Mental Status Exam General Appearance: Casual, Well Groomed, Good Eye Contact, Cooperative, Polite , Good Interaction, No Unkept, No Tearful, Psychomotor Retardation, No Bizarre Mannerisms, No Tics Speech: Clear, Spontaneous, Normal Rhythm, No Normal Volume, Normal Tone, Delayed Mood: Dysthmic/Depressed (frustrated) Affect: Calm, Neutral Thought Process: Organized, Logical, Goal Directed, No Loose Associations, No Flight of Ideas Thought Content: No Suicidal Ideation, No Homicidal Ideation, No Delusions, No Auditory Halllucinations, Visual Hallucinations (related to withdrawal), No Thought Broadcasting, No Ideas of Reference, No Obsessions, No Compulsions Sensorium: Clear (mostly n) Cognition: Alert & Oriented-Person, Alert & Oriented-Place, No Alert & Oriented -Time (partially), No Skpgi-Gvdxzjlq-Oheewbbip Memory: Immediate, Recent, Remote Intelligence: Average Insight Judgment: Fair (patient indicates understanding the necessity to abstain ) Result Diagram: 05/09/1859905/09/18 06 [facility] Assessment and Plan [id number] Encounter Date: May 10, 2018 [id number] Encounter Time: 09:00 [facility] Plan: Necessary Precautions, Individual/Group Therapy, Admin/Titrate Meds, Educate Patient Tobacco Medications: Started Multpiple Antipsychotics Used: No Problems: (1) Alcohol withdrawal Status: Acute (2) Alcohol use disorder, severe, in controlled environment Optional Permanent Comment: hx of traumatic brain injury Last Edited By: Leeanne Beck on May 09, 2018 13:23 Status: Chronic Condition 1. continue treatment. 2. PPD today. 3. await labs. 4. look into residential treatment programs. Problem Qualifiers (1) Alcohol withdrawal: Complication of substance-induced condition: with perceptual disturbance Qualified Codes: F10.232 - Alcohol dependence with withdrawal with perceptual disturbance LEEANNE BECK MD May 10, 2018 09:24
[2018-05-10 09:25] VITALS: BP 120/76
[2018-05-10 13:25] VITALS: BP 128/80
[2018-05-10 18:06] VITALS: BP 126/85
[2018-05-10] MEDS ORDERED: PANTOPRAZOLE SOD 40 MG TABEC PO ONE (19:05)
[2018-05-10 22:48] VITALS: BP 132/78
[2018-05-11 06:01] VITALS: BP 130/92
[2018-05-11] MEDS: LORazepam 1 MG TAB PO PRN ×4 (06:13→20:03)
[2018-05-11 06:36] LABS: PLATELET COUNT, AUTOMATED 181 K/uL (150-450)
[2018-05-11] MEDS: PANTOPRAZOLE SOD 40 MG TABEC PO SCH (08:23)
[2018-05-11] MEDS: MULTIVITAMINS PO SCH (08:23)
[2018-05-11] MEDS: THIAMINE HCL 100 MG TAB PO SCH (08:23)
[2018-05-11] MEDS: FOLIC ACID 1 MG TAB PO SCH (08:23)
--- NOTE | 2018-05-11 09:16 | RADIOLOGY IMAGING REPORT ---
FACILITY: [facility] - [place] PATIENT NAME: Jay Francis : 1985 MR: [id number] V: [id number] EXAM DATE: ORDERING PHYSICIAN: LEEANNE BECK TECHNOLOGIST: Location: [facility] [place] Patient: Jay Francis : 1985 Visit/Account:[id number] Date of Sevice: 05/11/2018 GALLBLADDER HISTORY: ABD.PAIN COMPARISON: CT abdomen pelvis April 26, 2017 FINDINGS: Gallbladder: There is no demonstration of gallbladder stones or sludge. Gallbladder wall measures ap proximate 3.3 mm in thickness. No pericholecystic fluid was identified. Liver: There is diffuse hepatic steatosis as seen on the prior CT. The liver is enlarged measuring 2 4 cm in length. There is a 3 cm well-circumscribed echogenic space-occupying process adjacent to the gallbladder possibly a hemangioma or focal fatty deposit. Common duct: Normal, four mm diameter. Pancreas: Obscured by bowel gas Right kidney: Unremarkable as imaged measuring 13.1 cm in length Upper abdominal aorta and IVC: Patent. Ascites: None visualized. IMPRESSION: Hepatomegaly with fatty infiltration of the liver. 3 cm round echogenic space-occupying process within the liver adjacent to the gallbladder may represe nt a hemangioma or possibly an area of focal fatty infiltration although other solid mass is not excl uded. Depending upon the degree of clinical concern three phase CT of the liver or MR the liver with and without contrast recommended Report Dictated By: Ethel Kuo MD at 05/11/2018 9:05 AM Report E-Signed By: Ethel Kuo MD at 05/11/2018 9:11 AM WSN:[email or web address]
[2018-05-11 10:25] VITALS: BP 118/78
--- NOTE | 2018-05-11 10:36 | BHS Progress Note ---
[facility] - Subjective Progress Notes Subjective Alcohol withdrawal nearing completion in this somewhat frustrated patient. Bilirubin continues to climb, with reduced ammonia today. Ultrasound negative for gallstones. Will continue search to secure entrance into rehab program. repeat labs in AM. Suicidal Ideation: None Homicidal Ideation: None [facility] - Objective Physical Exam Muscle Strength and Tone: WNL Gait and Station: Steady [facility] Medications Reviewed: Side Effects, Benefits of Medication, Risks Allergies Reviewed: Yes Mental Status Exam General Appearance: Casual, Well Groomed, Good Eye Contact, Cooperative, Polite , Good Interaction, No Unkept, No Tearful, Psychomotor Retardation, No Bizarre Mannerisms, No Tics Speech: Clear, Spontaneous, Normal Rhythm, No Normal Volume, Normal Tone, Delayed Mood: Dysthmic/Depressed (frustrated) Affect: Calm, Neutral Thought Process: Organized, Logical, Goal Directed, No Loose Associations, No Flight of Ideas Thought Content: No Suicidal Ideation, No Homicidal Ideation, No Delusions, No Auditory Halllucinations, Visual Hallucinations (related to withdrawal), No Thought Broadcasting, No Ideas of Reference, No Obsessions, No Compulsions Sensorium: Clear (mostly n) Cognition: Alert & Oriented-Person, Alert & Oriented-Place, No Alert & Oriented -Time (partially), No Itaye-Bwvprwao-Uulubklfv Memory: Immediate, Recent, Remote Intelligence: Average Insight Judgment: Fair (patient indicates understanding the necessity to abstain ) Result Diagram: 05/11/1862305/11/18623 [facility] Assessment and Plan Ngep-vs-[id number] Encounter Date: May 11, 2018 [id number] Encounter Time: 10:00 [facility] Plan: Necessary Precautions, Individual/Group Therapy, Admin/Titrate Meds, Educate Patient Tobacco Medications: Started Multpiple Antipsychotics Used: No Problems: (1) Alcohol withdrawal Status: Acute (2) Alcohol use disorder, severe, in controlled environment Optional Permanent Comment: hx of traumatic brain injury Last Edited By: Leeanne Beck on May 09, 2018 13:23 Status: Chronic Condition 1. continue treatment. 2. solidify residential care. Problem Qualifiers (1) Alcohol withdrawal: Complication of substance-induced condition: with perceptual disturbance Qualified Codes: F10.232 - Alcohol dependence with withdrawal with perceptual disturbance LEEANNE BECK MD May 11, 2018 10:36
[2018-05-11 14:25] VITALS: BP 132/90
[2018-05-11 18:30] VITALS: BP 110/60
[2018-05-12 03:00] VITALS: BP 123/71
[2018-05-12 03:36] VITALS: BP 141/92
[2018-05-12 07:38] LABS: PLATELET COUNT, AUTOMATED 189 K/uL (150-450)
[2018-05-12 07:45] VITALS: BP 129/75
[2018-05-12] MEDS: PANTOPRAZOLE SOD 40 MG TABEC PO SCH (08:50)
[2018-05-12] MEDS: MULTIVITAMINS PO SCH (08:50)
[2018-05-12] MEDS: THIAMINE HCL 100 MG TAB PO SCH (08:50)
[2018-05-12] MEDS: FOLIC ACID 1 MG TAB PO SCH (08:50)
--- NOTE | 2018-05-12 08:52 | BHS Progress Note ---
BHS - Subjective Progress Notes Subjective Labwork on this patient now showing signs of steady improvement, patient regaining some of his appetite, and continues to verbalize an interest in entering a rehab program. Patient denies any other concerns, tapering of Ativan continues. will solidify residential treatment. Suicidal Ideation: None Homicidal Ideation: None [facility] - Objective Physical Exam Vital Signs Vital Signs Date Time Temp Pulse Resp B/P (MAP) Pulse Ox O2 Delivery O2 Flow Rate FiO2 05/12/18 03:36 99.4 92 16 141/92 (108) 95 Room Air Hematology Test 05/09/18 06:00 05/10/18 09:08 05/10/18 09:57 05/12/18 07:30 Amylase Level 40 U/L (0-110) Lipase 90 U/L (23-300) Peripheral Blood Smear No Y/N Magnesium Level 2.0 mg/dl (1.7-2.2) Red Blood Count 4.16 M/uL (4.00-5.60) Mean Corpuscular Volume 98.7 fL (80.0-96.0) Mean Corpuscular Hemoglobin 33.9 pg (26.0-33.0) Mean Corpuscular Hemoglobin Concent 34.3 g/dL (32.0-36.0) Red Cell Distribution Width 14.4 % (11.5-14.5) Mean Platelet Volume 11.7 fL (7.2-11.1) Neutrophils (%) (Auto) 68.2 % (39.4-72.5) Lymphocytes (%) (Auto) 21.2 % (17.6-49.6) Monocytes (%) (Auto) 6.2 % (4.1-12.4) Eosinophils (%) (Auto) 4.0 % (0.4-6.7) Basophils (%) (Auto) 0.4 % (0.3-1.4) Nucleated RBC Relative Count (auto) 0.0 /100WBC Neutrophils # (Auto) 5.7 K/uL (2.0-7.4) Lymphocytes # (Auto) 1.8 K/uL (1.3-3.6) Monocytes # (Auto) 0.5 K/uL (0.3-1.0) Eosinophils # (Auto) 0.3 K/uL (0.0-0.5) Basophils # (Auto) 0.0 K/uL (0.0-0.1) Nucleated RBC Absolute Count (auto) 0.00 K/uL Sodium Level 138 mmol/L (137-145) Potassium Level 4.2 mmol/L (3.5-5.0) Chloride Level 104 mmol/L (98-107) Carbon Dioxide Level 21 mmol/L (22-30) Blood Urea Nitrogen 6 mg/dl (9-21) Creatinine 0.50 mg/dl (0.66-1.25) Glomerular Filtration Rate Calc > 60.0 Random Glucose 96 mg/dl (75-110) Calcium Level 9.0 mg/dl (8.4-10.2) Total Bilirubin 6.7 mg/dl (0.2-1.3) Aspartate Amino Transf (AST/SGOT) 253 U/L (0-35) Alanine Aminotransferase (ALT/SGPT) 65 U/L (0-56) Alkaline Phosphatase 153 U/L (0-126) Ammonia 32 UMOL/L (9-33) Total Protein 7.4 g/dl (6.3-8.2) Albumin 3.2 g/dl (3.5-5.0) Chemistry Test 05/09/18 06:00 05/10/18 09:08 05/10/18 09:57 05/12/18 07:30 Amylase Level 40 U/L (0-110) Lipase 90 U/L (23-300) Peripheral Blood Smear No Y/N Magnesium Level 2.0 mg/dl (1.7-2.2) White Blood Count 8.4 k/uL (4.5-11.0) Red Blood Count 4.16 M/uL (4.00-5.60) Hemoglobin 14.1 g/dL (14.0-18.0) Hematocrit 41.1 % (42.0-52.0) Mean Corpuscular Volume 98.7 fL (80.0-96.0) Mean Corpuscular Hemoglobin 33.9 pg (26.0-33.0) Mean Corpuscular Hemoglobin Concent 34.3 g/dL (32.0-36.0) Red Cell Distribution Width 14.4 % (11.5-14.5) Platelet Count 189 K/uL (150-450) Mean Platelet Volume 11.7 fL (7.2-11.1) Neutrophils (%) (Auto) 68.2 % (39.4-72.5) Lymphocytes (%) (Auto) 21.2 % (17.6-49.6) Monocytes (%) (Auto) 6.2 % (4.1-12.4) Eosinophils (%) (Auto) 4.0 % (0.4-6.7) Basophils (%) (Auto) 0.4 % (0.3-1.4) Nucleated RBC Relative Count (auto) 0.0 /100WBC Neutrophils # (Auto) 5.7 K/uL (2.0-7.4) Lymphocytes # (Auto) 1.8 K/uL (1.3-3.6) Monocytes # (Auto) 0.5 K/uL (0.3-1.0) Eosinophils # (Auto) 0.3 K/uL (0.0-0.5) Basophils # (Auto) 0.0 K/uL (0.0-0.1) Nucleated RBC Absolute Count (auto) 0.00 K/uL Glomerular Filtration Rate Calc > 60.0 Calcium Level 9.0 mg/dl (8.4-10.2) Total Bilirubin 6.7 mg/dl (0.2-1.3) Aspartate Amino Transf (AST/SGOT) 253 U/L (0-35) Alanine Aminotransferase (ALT/SGPT) 65 U/L (0-56) Alkaline Phosphatase 153 U/L (0-126) Ammonia 32 UMOL/L (9-33) Total Protein 7.4 g/dl (6.3-8.2) Albumin 3.2 g/dl (3.5-5.0) Muscle Strength and Tone: WNL Gait and Station: Steady [facility] Medications Reviewed: Side Effects, Benefits of Medication, Risks Allergies Reviewed: Yes Mental Status Exam General Appearance: Casual, Well Groomed, Good Eye Contact, Cooperative, Polite , Good Interaction, No Unkept, No Tearful, Psychomotor Retardation, No Bizarre Mannerisms, No Tics Speech: Clear, Spontaneous, Normal Rhythm, No Normal Volume, Normal Tone, Delayed Mood: Dysthmic/Depressed (frustrated) Affect: Calm, Neutral Thought Process: Organized, Logical, Goal Directed, No Loose Associations, No Flight of Ideas Thought Content: No Suicidal Ideation, No Homicidal Ideation, No Delusions, No Auditory Halllucinations, No Visual Hallucinations, No Thought Broadcasting, No Ideas of Reference, No Obsessions, No Compulsions Sensorium: Clear (mostly n) Cognition: Alert & Oriented-Person, Alert & Oriented-Place, No Alert & Oriented -Time (partially), No Nhiob-Rwzrrttg-Yaqdcgihq Memory: Immediate, Recent, Remote Intelligence: Average Insight Judgment: Fair (patient indicates understanding the necessity to abstain ) Result Diagram: 05/12/1872905/12/18729 [facility] Assessment and Plan Kwxj-af-Svtv Encounter Date: May 12, 2018 Zavs-sw-Llql Encounter Time: 09:00 [facility] Plan: Necessary Precautions, Individual/Group Therapy, Admin/Titrate Meds, Educate Patient Tobacco Medications: Started Multpiple Antipsychotics Used: No Problems: (1) Alcohol withdrawal Status: Acute (2) Alcohol use disorder, severe, in controlled environment Optional Permanent Comment: hx of traumatic brain injury Last Edited By: Leeanne Beck on May 09, 2018 13:23 Status: Chronic Condition 1. continue ativan taper. 2. lab work in AM. 3. solidify residential treatment plan. Problem Qualifiers (1) Alcohol withdrawal: Complication of substance-induced condition: with perceptual disturbance Qualified Codes: F10.232 - Alcohol dependence with withdrawal with perceptual disturbance LEEANNE BECK MD May 12, 2018 08:52
[2018-05-12] MEDS ORDERED: LORazepam 1 MG TAB PO ONE (12:00)
[2018-05-12 19:20] VITALS: BP 142/78
[2018-05-12] MEDS: LORazepam 1 MG TAB PO SCH (21:21)
[2018-05-13 06:24] VITALS: BP 108/76
[2018-05-13] MEDS: MULTIVITAMINS PO SCH (08:16)
[2018-05-13] MEDS: THIAMINE HCL 100 MG TAB PO SCH (08:16)
[2018-05-13] MEDS: FOLIC ACID 1 MG TAB PO SCH (08:16)
[2018-05-13] MEDS: PANTOPRAZOLE SOD 40 MG TABEC PO SCH (08:16)
[2018-05-13 08:30] VITALS: BP 124/76
--- NOTE | 2018-05-13 10:44 | BHS Progress Note ---
BHS - Subjective Progress Notes Subjective Patient remains cooperative on the unit, appetite improving, alcohol withdrawal nearing completion. Mood improved today, appetite improving. No other concerns. Patient interacting well, and taking an active role in his treatment. Patient is set to enter rehab on Wednesday, ativan taper complete today. Will draw labs today. Suicidal Ideation: None Homicidal Ideation: None S - Objective Physical Exam Vital Signs Hematology Test 05/09/18 06:00 05/10/18 09:08 05/10/18 09:57 05/12/18 07:30 Amylase Level 40 U/L (0-110) Lipase 90 U/L (23-300) Peripheral Blood Smear No Y/N Magnesium Level 2.0 mg/dl (1.7-2.2) Tuberculin Skin Test 0 mm Red Blood Count 4.16 M/uL (4.00-5.60) Mean Corpuscular Volume 98.7 fL (80.0-96.0) Mean Corpuscular Hemoglobin 33.9 pg (26.0-33.0) Mean Corpuscular Hemoglobin Concent 34.3 g/dL (32.0-36.0) Red Cell Distribution Width 14.4 % (11.5-14.5) Mean Platelet Volume 11.7 fL (7.2-11.1) Neutrophils (%) (Auto) 68.2 % (39.4-72.5) Lymphocytes (%) (Auto) 21.2 % (17.6-49.6) Monocytes (%) (Auto) 6.2 % (4.1-12.4) Eosinophils (%) (Auto) 4.0 % (0.4-6.7) Basophils (%) (Auto) 0.4 % (0.3-1.4) Nucleated RBC Relative Count (auto) 0.0 /100WBC Neutrophils # (Auto) 5.7 K/uL (2.0-7.4) Lymphocytes # (Auto) 1.8 K/uL (1.3-3.6) Monocytes # (Auto) 0.5 K/uL (0.3-1.0) Eosinophils # (Auto) 0.3 K/uL (0.0-0.5) Basophils # (Auto) 0.0 K/uL (0.0-0.1) Nucleated RBC Absolute Count (auto) 0.00 K/uL Sodium Level 138 mmol/L (137-145) Potassium Level 4.2 mmol/L (3.5-5.0) Chloride Level 104 mmol/L (98-107) Carbon Dioxide Level 21 mmol/L (22-30) Blood Urea Nitrogen 6 mg/dl (9-21) Creatinine 0.50 mg/dl (0.66-1.25) Glomerular Filtration Rate Calc > 60.0 Random Glucose 96 mg/dl (75-110) Calcium Level 9.0 mg/dl (8.4-10.2) Total Bilirubin 6.7 mg/dl (0.2-1.3) Aspartate Amino Transf (AST/SGOT) 253 U/L (0-35) Alanine Aminotransferase (ALT/SGPT) 65 U/L (0-56) Alkaline Phosphatase 153 U/L (0-126) Ammonia 32 UMOL/L (9-33) Total Protein 7.4 g/dl (6.3-8.2) Albumin 3.2 g/dl (3.5-5.0) Chemistry Test 05/09/18 06:00 05/10/18 09:08 05/10/18 09:57 05/12/18 07:30 Amylase Level 40 U/L (0-110) Lipase 90 U/L (23-300) Peripheral Blood Smear No Y/N Magnesium Level 2.0 mg/dl (1.7-2.2) Tuberculin Skin Test 0 mm White Blood Count 8.4 k/uL (4.5-11.0) Red Blood Count 4.16 M/uL (4.00-5.60) Hemoglobin 14.1 g/dL (14.0-18.0) Hematocrit 41.1 % (42.0-52.0) Mean Corpuscular Volume 98.7 fL (80.0-96.0) Mean Corpuscular Hemoglobin 33.9 pg (26.0-33.0) Mean Corpuscular Hemoglobin Concent 34.3 g/dL (32.0-36.0) Red Cell Distribution Width 14.4 % (11.5-14.5) Platelet Count 189 K/uL (150-450) Mean Platelet Volume 11.7 fL (7.2-11.1) Neutrophils (%) (Auto) 68.2 % (39.4-72.5) Lymphocytes (%) (Auto) 21.2 % (17.6-49.6) Monocytes (%) (Auto) 6.2 % (4.1-12.4) Eosinophils (%) (Auto) 4.0 % (0.4-6.7) Basophils (%) (Auto) 0.4 % (0.3-1.4) Nucleated RBC Relative Count (auto) 0.0 /100WBC Neutrophils # (Auto) 5.7 K/uL (2.0-7.4) Lymphocytes # (Auto) 1.8 K/uL (1.3-3.6) Monocytes # (Auto) 0.5 K/uL (0.3-1.0) Eosinophils # (Auto) 0.3 K/uL (0.0-0.5) Basophils # (Auto) 0.0 K/uL (0.0-0.1) Nucleated RBC Absolute Count (auto) 0.00 K/uL Glomerular Filtration Rate Calc > 60.0 Calcium Level 9.0 mg/dl (8.4-10.2) Total Bilirubin 6.7 mg/dl (0.2-1.3) Aspartate Amino Transf (AST/SGOT) 253 U/L (0-35) Alanine Aminotransferase (ALT/SGPT) 65 U/L (0-56) Alkaline Phosphatase 153 U/L (0-126) Ammonia 32 UMOL/L (9-33) Total Protein 7.4 g/dl (6.3-8.2) Albumin 3.2 g/dl (3.5-5.0) Vital Signs Date Time Temp Pulse Resp B/P (MAP) Pulse Ox O2 Delivery O2 Flow Rate FiO2 05/13/18 08:30 98.1 94 18 124/76 (92) 94 Room Air Muscle Strength and Tone: WNL Gait and Station: Steady [facility] Medications Reviewed: Side Effects, Benefits of Medication, Risks Allergies Reviewed: Yes Mental Status Exam General Appearance: Casual, Well Groomed, Good Eye Contact, Cooperative, Polite , Good Interaction, No Unkept, No Tearful, No Bizarre Mannerisms, No Tics Speech: Clear, Spontaneous, Normal Rate, Normal Rhythm, Normal Volume, Normal Tone, No Delayed, No Slurred, No Garbled Mood: Euthymic Affect: Full and Appropriate (at times), Calm, Neutral Thought Process: Organized, Logical, Goal Directed, No Loose Associations, No Flight of Ideas Thought Content: No Suicidal Ideation, No Homicidal Ideation, No Delusions, No Auditory Halllucinations, No Visual Hallucinations, No Thought Broadcasting, No Ideas of Reference, No Obsessions, No Compulsions Sensorium: Clear Cognition: Alert & Oriented-Person, Alert & Oriented-Place, Alert & Oriented- Time, Dlqjz-Ghylqyfz-Ydnjjxlqx Memory: Immediate, Recent, Remote Intelligence: Average Insight Judgment: Fair (patient indicates understanding the necessity to abstain ) Result Diagram: 05/12/1872905/12/18729 [facility] Assessment and Plan Grcq-tg-Amhg Encounter Date: May 13, 2018 Qlqx-cm-Gzas Encounter Time: 10:20 [facility] Plan: Necessary Precautions, Individual/Group Therapy, Admin/Titrate Meds, Educate Patient Tobacco Medications: Started Multpiple Antipsychotics Used: No Problems: (1) Alcohol withdrawal Status: Acute (2) Alcohol use disorder, severe, in controlled environment Optional Permanent Comment: hx of traumatic brain injury Last Edited By: Leeanne Beck on May 09, 2018 13:23 Status: Chronic Condition 1. monitor labs 2. ativan discontinued today. 3. rehab entrance Wednesday. Problem Qualifiers (1) Alcohol withdrawal: Complication of substance-induced condition: with perceptual disturbance Qualified Codes: F10.232 - Alcohol dependence with withdrawal with perceptual disturbance LEEANNE BECK MD May 13, 2018 10:44
[2018-05-13 11:32] LABS: PLATELET COUNT, AUTOMATED 168 K/uL (150-450)
[2018-05-13] MEDS ORDERED: NICOTINE CARTRIDGE 1 EA PO PRN (18:25)
[2018-05-13 18:41] VITALS: BP 140/78
[2018-05-13] MEDS: NICOTINE INH SYSTEM 10 MG/INH INH PRN (19:14)
[2018-05-13] MEDS: LORazepam 1 MG TAB PO SCH (21:36)
[2018-05-14 05:55] VITALS: BP 108/58
[2018-05-14 07:13] LABS: PLATELET COUNT, AUTOMATED 176 K/uL (150-450)
[2018-05-14] MEDS: MULTIVITAMINS PO SCH (08:24)
[2018-05-14] MEDS: PANTOPRAZOLE SOD 40 MG TABEC PO SCH (08:24)
[2018-05-14] MEDS: FOLIC ACID 1 MG TAB PO SCH (08:24)
[2018-05-14] MEDS: THIAMINE HCL 100 MG TAB PO SCH (08:24)
--- NOTE | 2018-05-14 11:08 | BHS Progress Note ---
[facility] - Subjective Progress Notes Subjective "I'm going to rehab in [place] Wednesday." Patient remains cooperative on the unit, appetite improving, alcohol withdrawal nearing completion. Mood improved today, appetite improving. No other concerns. Patient interacting well, and taking an active role in his treatment. Patient is set to enter rehab on Wednesday Suicidal Ideation: None Homicidal Ideation: None [facility] - Objective Physical Exam Vital Signs Vital Signs Date Time Temp Pulse Resp B/P (MAP) Pulse Ox O2 Delivery O2 Flow Rate FiO2 05/14/18 05:55 98.0 82 108/58 (75) 94 Room Air 05/13/18 08:30 18 Muscle Strength and Tone: WNL Gait and Station: Steady [facility] Medications Reviewed: Side Effects, Benefits of Medication, Risks Allergies Reviewed: Yes Mental Status Exam General Appearance: Casual, Well Groomed, Good Eye Contact, Cooperative, Polite , Good Interaction, No Unkept, No Tearful, No Bizarre Mannerisms, No Tics Speech: Clear, Spontaneous, Normal Rate, Normal Rhythm, Normal Volume, Normal Tone, No Delayed, No Slurred, No Garbled Mood: Euthymic Affect: Full and Appropriate (at times), Calm, Neutral Thought Process: Organized, Logical, Goal Directed, No Loose Associations, No Flight of Ideas Thought Content: No Suicidal Ideation, No Homicidal Ideation, No Delusions, No Auditory Halllucinations, No Visual Hallucinations, No Thought Broadcasting, No Ideas of Reference, No Obsessions, No Compulsions Sensorium: Clear Cognition: Alert & Oriented-Person, Alert & Oriented-Place, Alert & Oriented- Time, Uofuy-Dqjilirx-Psydtqtug Memory: Immediate, Recent, Remote Intelligence: Average Insight Judgment: Fair (patient indicates understanding the necessity to abstain ) Result Diagram: 05/14/18 0704 05/14/18 0704 [facility] Assessment and Plan Qkiz-hx-Styg Encounter Date: May 14, 2018 Rtxd-mc-Oful Encounter Time: 11:02 [facility] Plan: Necessary Precautions, Individual/Group Therapy, Admin/Titrate Meds, Educate Patient Tobacco Medications: Started Multpiple Antipsychotics Used: No Problems: (1) Alcohol use disorder, severe, in controlled environment Optional Permanent Comment: hx of traumatic brain injury Last Edited By: Vel Noriega on May 09, 2018 13:23 Status: Chronic (2) Alcohol withdrawal Status: Resolved (3) Hepatitis, alcoholic, acute Status: Acute (4) Cannabis use disorder, severe, in controlled environment Status: Chronic Condition Continue current medication and treatment Residential treatment program, plan for transfer WednesdayMay 16 Problem Qualifiers (1) Alcohol withdrawal: Complication of substance-induced condition: with perceptual disturbance Qualified Codes: F10.232 - Alcohol dependence with withdrawal with perceptual disturbance ENRIQUE SETHI NP May 14, 2018 11:08
[2018-05-14 11:41] VITALS: BP 143/98
[2018-05-14] MEDS: NICOTINE INH SYSTEM 10 MG/INH INH PRN (18:22)
[2018-05-14 19:25] VITALS: BP 137/89
[2018-05-15 06:11] VITALS: BP 147/94
[2018-05-15 07:53] LABS: PLATELET COUNT, AUTOMATED 159 K/uL (150-450)
[2018-05-15] MEDS: MULTIVITAMINS PO SCH (08:23)
[2018-05-15] MEDS: PANTOPRAZOLE SOD 40 MG TABEC PO SCH (08:23)
[2018-05-15] MEDS: FOLIC ACID 1 MG TAB PO SCH (08:23)
[2018-05-15] MEDS: THIAMINE HCL 100 MG TAB PO SCH (08:23)
[2018-05-15 09:31] VITALS: BP 130/83
[2018-05-15] MEDS ORDERED: diphenhydrAMINE 25 MG CAP PO ONE ×2 (10:20→21:00)
--- NOTE | 2018-05-15 10:27 | BHS Progress Note ---
[facility] - Subjective Progress Notes Subjective "I'm ready to be out of here. I want to spend the next 90 days learning to stay sober." Releasing tomorrow, plans for residential rehab [facility], mother to transport Reports itching, no evidence of rash, unsure if linen related Alcohol withdrawal complete BILI 3.7, AST 338, ALT 121, MCV 99.7 Suicidal Ideation: None Homicidal Ideation: None [facility] - Objective Physical Exam Vital Signs Allergies Coded Allergies No Known Drug Allergies (Unverified04/30/18) Muscle Strength and Tone: WNL Gait and Station: Steady [facility] Medications Reviewed: Side Effects, Benefits of Medication, Risks Allergies Reviewed: Yes Mental Status Exam General Appearance: Casual, Well Groomed, Good Eye Contact, Cooperative, Polite , Good Interaction, No Unkept, No Tearful, No Bizarre Mannerisms, No Tics Speech: Clear, Spontaneous, Normal Rate, Normal Rhythm, Normal Volume, Normal Tone, No Delayed, No Slurred, No Garbled Mood: Euthymic (reports more anxiety than depression) Affect: Full and Appropriate (at times), Calm, Neutral, Anxious Thought Process: Organized, Logical, Goal Directed, No Loose Associations, No Flight of Ideas Thought Content: No Suicidal Ideation, No Homicidal Ideation, No Delusions, No Auditory Halllucinations, No Visual Hallucinations, No Thought Broadcasting, No Ideas of Reference, No Obsessions, No Compulsions Sensorium: Clear Cognition: Alert & Oriented-Person, Alert & Oriented-Place, Alert & Oriented- Time, Grwcg-Thooenzd-Xkazdcsgf Memory: Immediate, Recent, Remote Intelligence: Average Insight Judgment: Fair (patient indicates understanding the necessity to abstain ) Result Diagram: 05/15/18 0729 05/15/18 0729 Microbiology ED Medications Miscellaneous Information (Nicotrol Cartridge) 1 each PRN PRN Last administered on 05/14/18at 18:24; Admin Dose 1 EACH; Start 05/13/18 at 18:25; Stop 06/12/18 at 18:24 Nicotine (Nicotrol Inhaler 10 Mg/Inh (Or Equiv)) 10 mg Q2H PRN Last administered on 05/14/18at 18:22; Admin Dose 10 MG; Start 05/13/18 at 18:25; Stop 06/12/18 at 18:24 Laboratory Tests 05/15/18 07:29 Laboratory - CBC/BMP Diagrams 05/15/18 07:29 S Assessment and Plan Deiq-jv-Sphe Encounter Date: May 15, 2018 Ceuu-wc-Ujge Encounter Time: 10:25 [facility] Plan: Necessary Precautions, Individual/Group Therapy, Admin/Titrate Meds, Educate Patient Tobacco Medications: Started Multpiple Antipsychotics Used: No Problems: (1) Alcohol use disorder, severe, in controlled environment Optional Permanent Comment: hx of traumatic brain injury Last Edited By: Vel Noriega on May 09, 2018 13:23 Status: Chronic (2) Alcohol withdrawal Status: Resolved (3) Hepatitis, alcoholic, acute Status: Acute (4) Cannabis use disorder, severe, in controlled environment Status: Chronic Condition Continue current medications and treatment Transfer to [facility] tomorrow by private transportation, mother Encourage sobriety, review labs and elevated liver enzymes Problem Qualifiers (1) Alcohol withdrawal: Complication of substance-induced condition: with perceptual disturbance Qualified Codes: F10.232 - Alcohol dependence with withdrawal with perceptual disturbance ENRIQUE SETHI NP May 15, 2018 10:27
[2018-05-15 16:00] VITALS: BP 124/72
[2018-05-15] MEDS: NICOTINE INH SYSTEM 10 MG/INH INH PRN ×2 (18:04→21:42)
[2018-05-16 05:29] VITALS: BP 98/56
[2018-05-16 07:34] LABS: PLATELET COUNT, AUTOMATED 194 K/uL (150-450)
[2018-05-16] MEDS: PANTOPRAZOLE SOD 40 MG TABEC PO SCH (07:40)
[2018-05-16] MEDS: THIAMINE HCL 100 MG TAB PO SCH (07:40)
[2018-05-16] MEDS: FOLIC ACID 1 MG TAB PO SCH (07:40)
[2018-05-16] MEDS: MULTIVITAMINS PO SCH (07:40)
[2018-05-16] MEDS ORDERED: FOLI-68 PO (08:58)
[2018-05-16] MEDS ORDERED: MULT-859 PO (08:58)
[2018-05-16] MEDS ORDERED: THIA100T2 PO (08:59)
[2018-05-16] MEDS ORDERED: NIC10R INH (09:00)
--- NOTE | 2018-05-17 21:03 | DISCHARGE SUMMARY ---
DATE OF ADMISSION: May 07, 2018 DATE OF DISCHARGE: May 16, 2018 The patient was seen at approximately 0815 hours on the a.m. of 16 May 2018 for note concerning this dictation. FINAL DIAGNOSES 1. Alcohol use disorder, severe. 2. Social stressors related to alcohol use disorder. 3. History of traumatic brain injury. 4. Patient having supportive relationship with some family member. REASON FOR ADMISSION This is an overall pleasant, 33-year-old male who has been battling alcoholism for quite some time. Patient had a series of admissions to [facility] concerning chronic alcoholism. Patient had compromised hepatic function, slowly recovering in the absence of alcohol use. Alcohol withdrawal was treated to completion with lorazepam per [facility] protocol. Alcohol withdrawal again was considered complete at time of discharge. Hepatic function remains compromised with showing evidence of slow improvement. Patient continued to verbalized a desire to abstain from all alcohol in the future and worked with staff to arrange entrance into a long-term, 90-day rehab program. Patient was accepted. Patient indicating no depressive symptoms other than ongoing frustration over alcohol use disorder. Patient continued to improve throughout stay. At time of discharge, patient remained vested in abstaining from alcohol in the future. PHYSICAL EXAMINATION Please see emergency room note. Notable for: GENERAL: A 33-year-old male. VITAL SIGNS: Vital signs at time of admission, temperature 98.4, pulse 104, respiratory rate 18, blood pressure 142/115, and pulse oximetry 91 on room air. At time of discharge from [facility] Unit, vital signs showed temperature 98.7, pulse 81, respiratory rate 15, blood pressure 98/56, and pulse oximetry 94 on room air. LABORATORY DATA On May 16, 2018, notable for CBC showing hemoglobin low at 13.7, but appears to be trending upward, hematocrit low at 44.4, MCV 99.4 and elevated, MCH 33.8 and elevated. Chemistry panel on May 16, 2018, indicated total bilirubin of 3.9, but trending downward. Remains elevated. AST 433 and elevated, and ALT 162 and elevated. PPD was negative. At time of admission, toxicology screen positive for benzodiazepines, which the patient had been given, with a serum alcohol level critically at time of admission of 379. Negative for other substances of abuse. Urinalysis did show urobilinogen present at 4.0; otherwise unremarkable. MENTAL STATUS EXAMINATION AT TIME OF DISCHARGE GENERAL APPEARANCE, BEHAVIOR, AND ATTITUDE: Patient interacting well with treatment team staff and his mother present in the room. Patient's mother indicating patient's baseline personality is aloof in nature. Patient not tearful, making fair eye contact at times. No bizarre mannerisms or tics. No psychomotor agitation or retardation. SPEECH: Considered baseline in this patient, within normal limits overall. MOOD: Described as okay. AFFECT: Mildly constricted and mood congruent. THOUGHT PROCESSES: Logical, goal directed. No loose associations or flight of ideas. THOUGHT CONTENT: Free of auditory or visual hallucinations, ideas of reference , thought broadcasting, delusions, obsessions, compulsions. Patient adamantly denying suicidal or homicidal ideations. SENSORIUM: Clear. COGNITION: Alert and oriented to person, place, time, situation. MEMORY: Immediate, recent, and remote estimated intact. INTELLIGENCE: Average based on interview. INSIGHT AND JUDGMENT: Considered grossly intact in the absence of alcohol use. RESULTS OF TESTING IMAGING: Patient had ultrasound of the gallbladder on May 11, 2018. It was unremarkable from a gallbladder standpoint, but did indicate hepatomegaly with fatty infiltration of the liver and a 3 cm round, echogenic, space-occupying process within the liver adjacent to the gallbladder. This may represent a hemangioma or possibly an area of focal fatty infiltration, although other solid mass is not excluded. LABORATORY DATA: See above. CONSULTATIONS None. TREATMENT Patient received medications. He did participate in individual and group therapy and overall took an active role in his care. HOSPITAL COURSE The patient had significant alcohol withdrawal, treated with lorazepam per [facility] protocol until completion. Patient lethargic at times secondary to impaired hepatic function. Hepatic function continued to trend toward improvement during patient's stay in the absence of alcohol use and, again, patient remained focused on entering rehab program. CONDITION OF PATIENT ON DISCHARGE Stable, considered minimal risk to himself or others and appropriate for ongoing management at rehab center. DISPOSITION Patient discharged to home care of family members who would escort him to rehab program. Patient would enter residential treatment program for alcohol use disorder. Patient agreed to abstain from all alcohol, Tylenol, and acetaminophen-containing products. On the day of discharge, patient stopped Protonix due to a possibility of that contributing to AST and ALT elevations. Patient would repeat a CMP and a CBC with auto diff in two weeks after departure from this unit. Patient would also consider repeat abdominal CT scan within the year to reevaluate. Patient was given the crisis line should symptoms return. At time of discharge, patient would remain on folic acid 1 mg daily, a multivitamin with minerals daily, and vitamin B1 100 mg daily. Patient was encouraged to abstain from smoking and could use palz-zzx-[id number] nicotine replacement. Patient was given the crisis line should any symptoms return. Risks, benefits, and alternatives of above discharge plan were discussed. Informed consent was given to proceed with above discharge plan by this competent patient and patient's mother present at time of discharge. ALBA
== END 2018-05-16 10:02 | disposition home or self-care (01) | DRG 897 ==
LOC: BHS 13:39
PROVIDERS: ADMIT Nurse Practitioner Psychiatric/Mental Health; ATTEND Nurse Practitioner Psychiatric/Mental Health
DX: F10.232 Alcohol dependence with withdrawal with perceptual disturbance (principal); K70.10 Alcoholic hepatitis without ascites; Z87.820 Personal history of traumatic brain injury; Y90.8 Blood alcohol level of 240 mg/100 ml or more; Z59.8 Other problems related to housing and economic circumstances; Z62.810 Personal history of physical and sexual abuse in childhood; Z91.5 Personal history of self-harm
CPT/HCPCS: 36415; 76705; 82040; 82140; 82150; 82247; 82310; 82374; 82435; 82565; 82947; 83690; 83735; 84075; 84132; 84155; 84295; 84450; 84460; 84520; 85025; 86580; Q0163